=== PATIENT | male | born 1935 | race Caucasian/White ===

== ENCOUNTER 2017-12-26 12:49 | Outpatient (CLI) | payer MEDICARE ==
--- NOTE | 2017-12-27 11:21 | PET ---
PET CT: HISTORY: 82-year-old male with bladder adenocarcinoma. TECHNIQUE: PET scanning with CT attenuation correction was performed from the base of the brain through the prox imal thighs following the intravenous administration of 11.3 mCi [id number] in the right antecubital fos sa. Imaging performed after an uptake interval of 48 minutes. COMPARISON: None. FINDINGS: There is a 2.0 cm hypermetabolic nodule in the left upper lobe with a SUV of 10 and a 14.0 mm hyperme tabolic nodule in the right upper lobe with a SUV of 4. Hypermetabolic left hilar lymph node is seen with a SUV of 10.4. There are omental and peritoneal mets in the abdomen and pelvis with a maximum SUV of 10. No chico hypermetabolism is seen in the neck, mediastinum, axilla, abdomen, or pelvis. No hypermetabo lic liver, adrenal, or skeletal lesions are seen. Patchy uptake in the liver is artifactual. There is physiologic activity in the GI and tracts, and the visualized portions of the brain. No pleural e ffusions are seen on the CT scan used for attenuation correction. There is mild ascites. IMPRESSION: Findings are consistent with metastatic disease in the lungs, left hilum, and peritoneum/omentum. POS: [facility]
== END 2017-12-26 12:50 | disposition home or self-care (01) ==
LOC: PET 12:49
PROVIDERS: ATTEND Internal Medicine Hematology & Oncology
DX: C67.9 Malignant neoplasm of bladder, unspecified (principal)
CPT/HCPCS: 78815; A9552

== ENCOUNTER 2018-01-10 11:51 | Day surgery (SDC) | payer MEDICARE ==
[2018-01-09 12:15] VITALS: BMI 19.8
[2018-01-10] MEDS ORDERED: Lidocaine 2% 10 ML INJ ONE (12:10)
[2018-01-10] MEDS ORDERED: Bupivacaine/Epinephrine 0.25% 30 ML VIAL ONE (12:10)
[2018-01-10] MEDS ORDERED: CEFAZOLIN/Water 2 GM/20 ML SYRINGE ONE (12:11)
[2018-01-10] MEDS ORDERED: Propofol 1,000 MG/100 ML VIAL IV ONE (12:26)
[2018-01-10] MEDS ORDERED: Fentanyl 100 MCG/2 ML VIAL ONE (12:26)
--- NOTE | 2018-01-10 13:27 | OP ---
DATE OF PROCEDURE: 01/10/2018 PREOPERATIVE DIAGNOSIS: Bladder cancer. POSTOPERATIVE DIAGNOSES: Bladder cancer. PROCEDURE: Tunneled central line subcutaneous port (MediPort, CT injectable). SURGEON: Edgar Rosa M.D. ANESTHESIA: TIVA, local. ESTIMATED BLOOD LOSS: Minimal. COMPLICATIONS: None. SPECIMEN: None. FINDINGS: The tip of the catheter is at atriocval junction. TECHNIQUE: The patient was taken to the operating room and placed supine on the table. After sedati on was obtained, bilateral neck and chest is shaved, prepped, and draped in a sterile fashion. Local anesthetic infiltrated over the right internal jugular vein. Internal jugular vein cannulated using a 22-gauge finder needle followed by a Seldinger needle. Wire was passed into the superior vena cav a under fluoroscopic guidance. A small yang was made at the wire entrance site. A separate 3-cm inc ision was made in the right upper chest. Subcutaneous pocket made below the lower incision. Tubing for the MediPort tunneled from the inferior to superior incision. Introducer sheath was placed over the wire into the superior vena cava. The tip of the catheter is at atriocaval junction. MediPort t ubing cut to admit the MediPort at the lower incision. MediPort sewn to the chest wall in the subcut aneous pocket using Prolene. MediPort flushes and draws blood without difficulties flushed with a he stacy flush. The wound was irrigated and closed using 3-0 Vicryl, 4-0 Monocryl, and Dermabond. The patient went to recovery in stable condition. All instrument counts, needle counts, and lap counts w ere correct.
--- NOTE | 2018-01-10 14:30 | RAD ---
ONE VIEW CHEST: HISTORY: Status post MediPort insertion. COMPARISON: None. FINDINGS: Normal cardiac silhouette. The pulmonary vessels and hilum are normal. Costophrenic angles are gaurav r. No consolidation or mass. Right-sided MediPort catheter terminates in the median superior vena c logan. No definite pneumothorax. IMPRESSION: Right-sided MediPort catheter. No pneumothorax. POS: [facility]
[2018-01-10] MEDS ORDERED: Ondansetron HCl/PF 4 MG/2 ML Vial ONE (15:09)
[2018-01-10] MEDS ORDERED: PROPOFOL 200 MG/20 ML VIAL ONE (15:09)
[2018-01-10] MEDS ORDERED: Dexamethasone 20 MG/5 ML VIAL ONE (15:09)
== END 2018-01-10 14:03 | disposition home or self-care (01) ==
LOC: SDC 11:51
PROVIDERS: ATTEND Surgery
PROC: 0JH63WZ Insertion of Totally Implantable Vascular Access Device into Chest Subcutaneous Tissue and Fascia, Percutaneous Approach (ICD-10-PCS; principal; 2018-01-10)
DX: C67.9 Malignant neoplasm of bladder, unspecified (principal); Z79.899 Other long term (current) drug therapy
CPT/HCPCS: 36561; 71045; C1788; J1100; J1642; J2405; J2704; J3010

== ENCOUNTER 2018-03-02 13:25 | Inpatient (IN) | payer MEDICARE ==
[2018-03-02 15:05] LABS: #Lymphocytes 1.7 thou/uL (1.20-3.40); #Monocytes 0.7 thou/uL (0.11-0.59); #Neutrophils 6.5 thou/uL (1.40-6.50); %Basophils 0.3 % (0.0-1.0); %Eosinophils 0.5 % (0.0-10.0); %Lymphocytes 19.1 % (21.0-51.0); %Monocytes 7.8 % (0.0-10.0); %Neutrophils 72.4 % (42.0-75.0); Hemoglobin 11.3 g/dL (14.0-18.0); Mean Corpuscular HGB CONC 33.4 g/dL (32.0-36.0); Mean Corpuscular Hemoglobin 29.6 pg (27.0-31.0); Mean Corpuscular Volume 88.7 fL (78.0-98.0); Mean Platelet Volume 7.4 fL (7.4-10.4); Platelet Count 284 thou/uL (130-400); RBC Distribution Width 14.8 % (11.5-14.5); White Blood Cell (WBC) Count 8.9 thou/uL (4.8-10.8)
--- NOTE | 2018-03-02 15:09 | RAD ---
FRONTAL VIEW CHEST: Date: 03/02/18 COMPARISON: 01/10/18. INDICATION: Weakness and diarrhea. FINDINGS: There is no evidence of consolidation, effusion, or discrete pneumothorax. Right side chest port earl ins. Cardiac silhouette is stable. There is vascular calcification and osseous degenerative change. IMPRESSION: No focal consolidation. POS: [facility]
[2018-03-02 15:22] LABS: ALT (SGPT) 15 U/L (8-55); AST (SGOT) 12 U/L (5-34); Albumin 3.8 g/dL (3.4-4.8); Alkaline Phosphatase 64 U/L (40-150); Anion Gap 17 mmol/L (10-20); BUN (Urea Nitrogen) 32 mg/dL (8.4-25.7); Bilirubin, Total 0.8 mg/dL (0.2-1.2); Calc. Creatinine Clearance 0 mL/min (70-130); Calcium 8.4 mg/dL (7.8-10.44); Carbon Dioxide 16 mmol/L (23-31); Chloride 104 mmol/L (98-107); Estimated GFR-MDRD 20; Globulin 2.7 g/dL (2.4-3.5); Glucose 124 mg/dL (83-110); Protein, Total 6.5 g/dL (5.8-8.1); Sodium 134 mmol/L (136-145)
[2018-03-02 15:28] LABS: Potassium 2.9 mmol/L (3.5-5.1)
[2018-03-02] MEDS ORDERED: NS 0.9% w/ 40 MEQ KCL 1,000 ML IV SCH (16:00)
[2018-03-02] MEDS ORDERED: cloNIDine 0.1 MG TAB PO PRN (18:11)
[2018-03-02] MEDS ORDERED: Acetaminophen 325 MG TAB PO PRN (18:11)
[2018-03-02] MEDS ORDERED: Senokot S 8.6-50 MG TAB PO PRN (18:11)
[2018-03-02] MEDS ORDERED: Bisacodyl 5 MG TAB PO PRN (18:11)
[2018-03-02] MEDS ORDERED: Diabetic Tussin 200 MG/10 ML UDCUP PO PRN (18:11)
[2018-03-02] MEDS ORDERED: Benzonatate 100 MG CAP PO PRN (18:11)
[2018-03-02] MEDS ORDERED: Nitroglycerin 0.4 MG TAB (25 Tab Bottle) SL PRN (18:11)
[2018-03-02] MEDS ORDERED: Loratadine 10 MG TAB PO PRN (18:11)
[2018-03-02] MEDS ORDERED: traMADol HCl 50 MG TAB PO PRN (18:11)
[2018-03-02] MEDS ORDERED: hydrALAZINE 20 MG/ML VIAL SLOW IVP PRN (18:11)
--- NOTE | 2018-03-02 18:38 | CT ---
NONCONTRAST ABDOMEN AND PELVIS CT: Clinical history: Weakness and pain. FINDINGS: Abnormal parahepatic and paraspinal free fluid is present which descends into the lower abdomen. Ther e is ectasia of the calcified aorta. No hydronephrosis or urolithiasis. There is complex reticular no dularity of the intraabdominal fat. This could be on the basis of complex ascites or tumor deposition , not further characterized on the basis of this noncontrast exam. Patchy densities are seen at the l zack bases as well as nodularity, incompletely assessed. Pancreas is atrophic. No adrenal mass is seen bilaterally. Moderate distention of the gallbladder with subtle increased layering density. There is osseous degenerative change. IMPRESSION: 1. Abdominal ascites. 2. Moderate distention of the gallbladder with layering increased density that may relate to sludge a nd/or gravel like cholelithiasis. This may be further assessed with gallbladder ultrasound as indicat ed. 3. Pulmonary parenchymal nodularity. Dedicated CT thorax as follow up as warranted as neoplastic etio logy is not excluded. 4. Complex reticulonodularity of the intraabdominal fat which could be on the basis of complex ascite s versus omental tumor deposition. Continued follow up is warranted. POS: [facility]
--- NOTE | 2018-03-02 19:23 | ULT ---
GALLBLADDER ULTRASOUND: History: Distended gallbladder noted on ultrasound. FINDINGS: Real-time imaging of the right upper quadrant shows minimally distended gallbladder. Some small echog enic areas along the gallbladder wall could indicate adenomyomatosis. It could be tiny polyps. No sto yi identified. Some trace free fluid seen adjacent to the gallbladder. The technologist reports a ne gative ultrasound Lee's sign. The common duct is 5 mm. Visualized liver parenchyma shows no focal findings and measures 16 cm in length. Right kidney was partially obscured and appears nonobstructed. It appears to be of mild increased ech ogenicity. The pancreas is totally obscured. IMPRESSION: Minimally distended gallbladder without gallbladder wall thickening or gallstones. There may be some small polyps or possibly adenomyomatosis noted. Some small echogenic areas along the gallbladder wall . The technologist reports a negative Lee's sign. There is some trace fluid adjacent to the gallbl adder incidentally noted and some trace fluid along the liver margin. POS: [facility]
[2018-03-02] MEDS: Sodium Chloride 0.9% 1,000 ML IV SCH (20:00)
--- NOTE | 2018-03-02 20:24 | HP ---
DATE OF ADMISSION: 03/02/2018 PRIMARY CARE PHYSICIAN: José Miguel Bishop M.D. CHIEF COMPLAINT: Generalized weakness and diarrhea. HISTORY OF PRESENT ILLNESS: Mr. Das is a pleasant 82-year-old male with past medical history of b ladder cancer diagnosed earlier this year in summer, currently on chemotherapy as well as history of pulmonary embolism in 11/2017 who presented to the emergency room with above-mentioned complaint. Hi story is mainly obtained by the patient himself and electronic medical records have been reviewed. C ase has been discussed with admitting ER physician. According to Mr. Das and his present at bedside, he is undergoing chemotherapy. He gets first round at the infusion center on Saturday and then they take at home and finish it by a pump on Saturday. He has undergone 3 cycles of chemo and his last cycle was day before yesterday on Saturday. He has noticed mild diarrhea after the second round of chemo, but he has been having some diarrhea even before starting of third round. Sometime in the last 2-3 days, his diarrhea has worsened and he has been going multiple times a day and the stools ar e loose, watery. It is not associated with any nausea, vomiting, or abdominal cramps. His appetite has been down and he has been getting dehydrated and the noticed that he is getting weaker and w eaker. Prior to all of the illness, he was very active and would mow his lawn. He denies any recent illnesses otherwise. Upon presentation to the emergency room, he was otherwise hemodynamically stable with blood pressures on the lower side of 92/66, heart rate 85. His initial workup includes serum chemistries which show ed potassium of 2.9, sodium 134, BUN 32, creatinine 3.04. His baseline creatinine seems to be around 2.9. Lipase and magnesium were normal. He underwent a CT scan of the abdomen and pelvis given his history of bladder cancer and acute renal insufficiency which showed abdominal ascites and moderate d istention of the gallbladder as well as pulmonary parenchymal opacities. Because of the gallbladder distention and gallbladder ultrasound was done, which was mild distention without evidence of cholecy stitis. His chest x-ray was unremarkable. A 12-lead EKG had no acute changes. He is now being admi tted for generalized weakness, severe dehydration, hypokalemia and acute renal insufficiency or likel y due to diarrhea. Mr. Das social supports that he had a PE in November of this year, is currently on Eliquis. He also w as recently told that the cancer have gone to his colon. PAST MEDICAL HISTORY: 1. Pulmonary embolism in 11/2017, currently on Eliquis. 2. History of bladder cancer with colonic metastasis. 3. Hypertension. PAST SURGICAL HISTORY: 1. Cardiac stenting x1 bowel perforation repair. 2. Left cataract surgery. 3. Hernia repair. PSYCHIATRIC HISTORY: None. SOCIAL HISTORY: and lives with his . He has a smoking history, multiple years ago. No history of current drug or alcohol abuse or tobacco abuse. FAMILY HISTORY: The patient denies any significant family history of coronary artery disease or stro ke in his family. He has 1 sister who has had breast cancer. ALLERGIES: No known medication allergies. CURRENT MEDICATIONS: As listed in the ER records which further needs to be confirmed, Eliquis 5 mg b .i.d., Megace 10-15 mL daily, Compazine 10 mg q.4 hour p.r.n., amlodipine 5 mg daily, Zofran p.r.n. CODE STATUS: FULL CODE. Discussed with the patient. REVIEW OF SYSTEMS: A 12 point review of systems was done. It is negative except for those mentioned in the history and physical. LABORATORY DATA: CBC is rather unimpressive. Hemoglobin 11.3, otherwise unremarkable. Serum chemis try: Potassium 2.9, BUN 32, creatinine 3.04 with estimated GFR 20, blood sugar 124. Lactic acid is 1. Magnesium is 2. Lipase is 34. Chest x-ray by my review has no evidence to suggest any acute car diopulmonary abnormality. No effusion or consolidation. CT scan of the abdomen and pelvis as per e HPI. Abdominal ultrasound is negative for any evidence of cholecystitis or gallstones. Twelve ute d EKG by my review has no evidence of ST or T-wave changes. PHYSICAL EXAMINATION: VITAL SIGNS: Upon presentation, blood pressure 92/66, pulse of 85, respirations 20, saturating 95% o n room air, temperature 98.2. GENERAL: He appears chronically ill, otherwise in no acute distress. He does appear somewhat pale. HEENT: Mucous membrane is dry. No oropharyngeal exudate or erythema. Head is normocephalic, atraum atic. Pupils equal, reactive to light and accommodation. Extraocular movement intact. NECK: Supple without any lymphadenopathy, JVD or bruit. CHEST: Clear to auscultation without any wheezing, rales or rhonchi. CARDIOVASCULAR: Rate and rhythm is regular without any murmur, rubs or gallops. ABDOMEN: Soft, nontender, nondistended with positive bowel sounds. EXTREMITIES: Free of any cyanosis, clubbing, or edema. NEUROLOGIC: Nonfocal. SKIN: Free of any rashes or bruises. Feels warm and dry to touch. PSYCHIATRIC: Normal affect. IMPRESSION AND PLAN: 1. Acute renal insufficiency. This is secondary to dehydration, ongoing some diarrhea. He will be resuscitated with IV fluids and we will avoid any nephrotoxic agents. Recheck in the morning. 2. Hypokalemia due to poor oral intake. He has been given 40 mEq of potassium chloride in the ER. We will check potassium again and replace as needed. 3. Acute on chronic diarrhea. The patient's diet is most likely secondary to chemo, but superinfect ion cannot be ruled out. We will send stool for Clostridium difficile and other studies including cu lture, WBCs. 4. Generalized weakness. This is secondary to ongoing cancer chemotherapy as well as dehydration as above. We will have OT, PT see the patient. We will add Ensure to help regain some of his strength . 5. History of hypertension, currently on the lower side. We will hold his amlodipine for now. 6. Bladder cancer. Continue to follow up with Dr. Gallagher in the outpatient setting. Despite the c hemotherapy, his white blood cell count, hemoglobin and platelet count is adequate. We will recheck in the morning. 7. History of pulmonary embolism. We will restart his Eliquis for now at home dosages. 8. Code status: FULL CODE. Discussed with the patient in detail. 9. Deep venous thrombosis and gastrointestinal prophylaxis and p.r.n. medication orders. DISPOSITION: Mr. Das is currently being admitted to the hospital for renal failure secondary to d ehydration and hypokalemia, with diarrheal illness. Further management will depend upon his clinical course. Estimated length of stay at this time is at least 2-3 midnights.
[2018-03-02 20:28] LABS: Potassium 3.1 mmol/L (3.5-5.1)
[2018-03-02] MEDS: Apixaban 2.5 MG TAB PO SCH (23:00)
[2018-03-03 05:29] LABS: #Lymphocytes 1.7 thou/uL (1.20-3.40); #Monocytes 0.5 thou/uL (0.11-0.59); #Neutrophils 3.7 thou/uL (1.40-6.50); %Eosinophils 0.3 % (0.0-10.0); %Lymphocytes 29.2 % (21.0-51.0); %Monocytes 8.2 % (0.0-10.0); %Neutrophils 62.3 % (42.0-75.0); Hemoglobin 10.1 g/dL (14.0-18.0); Mean Corpuscular HGB CONC 32.8 g/dL (32.0-36.0); Mean Corpuscular Hemoglobin 29.1 pg (27.0-31.0); Mean Corpuscular Volume 88.8 fL (78.0-98.0); Mean Platelet Volume 7.4 fL (7.4-10.4); Platelet Count 248 thou/uL (130-400); Red Blood Cell (RBC) Count 3.47 mill/uL (4.70-6.10)
[2018-03-03 05:44] LABS: Anion Gap 13 mmol/L (10-20); BUN (Urea Nitrogen) 31 mg/dL (8.4-25.7); Calc. Creatinine Clearance 24 mL/min (70-130); Calcium 7.9 mg/dL (7.8-10.44); Carbon Dioxide 19 mmol/L (23-31); Chloride 109 mmol/L (98-107); Estimated GFR-MDRD 22; Glucose 119 mg/dL (83-110); Sodium 138 mmol/L (136-145)
[2018-03-03 07:12] LABS: Bilirubin Negative (Negative); Blood, Urine Trace (Negative); Clarity CLEAR (Clear); Glucose, Urine (Dipstick) 100 mg/dL (Negative); Leukocyte Negative (Negative); Nitrite Negative (Negative); Protein, Urine (Dipstick) 30 mg/dL (Neg-Trace); Specific Gravity, Urine 1.013 (1.002-1.036); Urobilinogen 0.2 mg/dL (0.2-1.0)
[2018-03-03 07:15] LABS: Bacteria/HPF None Seen HPF (None Seen); Hyaline Casts/LPF 0-3 HYALINE CAST LPF (0-3 Hyaline); Pathc Cast-AUWi Flag 0.29 (0-2.49); Squamous Epithelial 0-3 HPF (0-3)
[2018-03-03] MEDS: Sodium Chloride 0.9% 1,000 ML IV SCH (08:27)
[2018-03-03] MEDS: Famotidine 20 MG TAB PO SCH (08:27)
[2018-03-03] MEDS: Apixaban 2.5 MG TAB PO SCH ×2 (08:27→21:32)
[2018-03-03] MEDS ORDERED: Enoxaparin Sodium 30 MG/0.3 ML SYRINGE SC SCH (09:00)
[2018-03-03] MEDS ORDERED: Prevnar 13-Val Conj/PF 0.5 ML SYRINGE IM ONE (09:00)
[2018-03-03] MEDS ORDERED: Ondansetron ODT 8 MG TAB SL PRN (09:09)
[2018-03-03] MEDS ORDERED: Prochlorperazine Maleate 5 MG TAB PO PRN (10:05)
[2018-03-03] MEDS ORDERED: Potassium Chloride 40 MEQ in Sodium Chloride 0.9% 250 ML 250 ML IVPB SCH (10:30)
[2018-03-03] MEDS ORDERED: Potassium Chloride 20 MEQ TAB PO SCH (10:30)
[2018-03-03] MEDS: Diphenoxylate HCl/Atropine Tablet PO PRN ×2 (11:00→17:47)
[2018-03-03] MEDS: NS 0.9% w/ 20 MEQ KCL 1,000 ML/1,000 ML BAG IV SCH ×2 (11:22→22:30)
--- NOTE | 2018-03-03 12:13 | PDOC.PN ---
- Subjective Encounter Start Date: 03/03/18 Encounter Start Time: 12:11 Subjective: feels much better but still weak. -: care discussed w at bedside -: still with lots of diarrhea - Objective Resuscitation Status: Resuscitation Status FULL:Full Resuscitation MAR Reviewed: Yes Vital Signs & Weight: Vital Signs (12 hours) Temp Pulse Pulse Pulse Pulse Resp BP 03/03/18 11:22 98.3 F 98 16 03/03/18 09:47 104 H 97 88 142/79 H 03/03/18 08:25 98.3 F 69 16 03/03/18 04:00 98 F 73 16 BP BP BP Pulse Ox 03/03/18 11:22 133/77 98 03/03/18 09:47 116/64 141/80 H 03/03/18 08:25 147/72 H 97 03/03/18 04:00 149/73 H 96 Weight Admit Weight 186 lb 14.4 oz Weight 186 lb 8 oz I&O: 03/02/18 03/03/18 03/04/18 06:59 06:59 06:59 Intake Total 1000 Output Total 175 1150 Balance 825 -1150 Result Diagrams: 03/03/18 04:26 03/03/18 04:26 Additional Labs: Microbiology 03/02/18 21:47 Stool Stool Lactoferrin - Final 03/02/18 21:47 Stool Shiga Toxin Test - Final 03/02/18 21:47 Stool C. difficile GDH Antigen & Toxins - Final Phys Exam - Physical Examination Constitutional: NAD HEENT: PERRLA, moist MMs, sclera anicteric, oral pharynx no lesions Neck: no nodes, no JVD, supple, full ROM Respiratory: no wheezing, no rales, no rhonchi, clear to auscultation bilateral Cardiovascular: RRR, no significant murmur Gastrointestinal: soft, non-tender, no distention, positive bowel sounds Musculoskeletal: no edema, pulses present Neurological: non-focal, normal sensation, moves all 4 limbs Psychiatric: normal affect, A&O x 3 Skin: no rash Dx/Plan (1) LORE (acute kidney injury) Code(s): N17.9 - ACUTE KIDNEY FAILURE, UNSPECIFIED Status: Acute (2) Hypokalemia Code(s): E87.6 - HYPOKALEMIA Status: Acute (3) Diarrhea Code(s): R19.7 - DIARRHEA, UNSPECIFIED Status: Acute (4) Dehydration Code(s): E86.0 - DEHYDRATION Status: Acute (5) Bladder cancer Status: Chronic (6) HTN (hypertension) Code(s): I10 - ESSENTIAL (PRIMARY) HYPERTENSION Status: Chronic - Plan PT/OT, out of bed/ambulate, DVT proph w/SCDs Cont IVF.change to IVF w KCL.recheck labs -: add Imodium as Cdiff negative -: Following urine & Blood Cx.Negative so far -: OT.PT. Pt prefers HH on DC -: am labs * . Review of Systems - Review of Systems Constitutional: weakness, malaise Eyes: negative: Pain, Vision Change, Conjunctivae Inflammation, Eyelid Inflammation, Redness, Other ENT: negative: Ear Pain, Ear Discharge, Nose Pain, Nose Discharge, Nose Congestion, Mouth Pain, Mouth Swelling, Throat Pain, Throat Swelling, Other Respiratory: negative: Cough, Dry, Shortness of Breath, Hemoptysis, SOB with Excertion, Pleuritic Pain, Sputum, Wheezing Cardiovascular: negative: chest pain, palpitations, orthopnea, paroxysmal nocturnal dyspnea, edema, light headedness, other Gastrointestinal: Diarrhea. negative: Nausea, Vomiting, Abdominal Pain, Constipation, Melena, Hematochezia, Other Genitourinary: negative: Dysuria, Frequency, Incontinence, Hematuria, Retention , Other Musculoskeletal: negative: Neck Pain, Shoulder Pain, Arm Pain, Back Pain, Hand Pain, Leg Pain, Foot Pain, Other Skin: negative: Rash, Lesions, Jesse, Bruising, Other Neurological: negative: Weakness, Numbness, Incoordination, Change in Speech, Confusion, Seizures, Other - Medications/Allergies Allergies/Adverse Reactions: Allergies Allergy/AdvReac Type Severity Reaction Status Date / Time No Known Allergies Allergy Verified 03/02/18 21:05 Medications: Current Medications Acetaminophen (Tylenol) 650 mg PO Q4H PRN PRN Reason: Headache/Fever/Mild Pain (1-3) Amlodipine Besylate (Norvasc) 5 mg PO DAILY [facility] Apixaban (Eliquis) 2.5 mg PO BID [facility] Last Admin: 03/03/18 08:27 Dose: 2.5 mg Benzonatate (Tessalon) 100 mg PO Q4H PRN PRN Reason: Cough Bisacodyl (Dulcolax) 10 mg PO DAILYPRN PRN PRN Reason: Constipation Clonidine (Catapres) 0.1 mg PO Q4H PRN PRN Reason: Systolic BP > 160 Diphenoxylate HCl/Atropine (Lomotil) 1 tab PO Q6H PRN PRN Reason: Diarrhea/Loose Stools Last Admin: 03/03/18 11:00 Dose: 1 tab Famotidine (Pepcid) 20 mg PO DAILY [facility] Last Admin: 03/03/18 08:27 Dose: 20 mg Guaifenesin (Robitussin Sf) 200 mg PO Q4H PRN PRN Reason: Cough Hydralazine HCl (Apresoline) 10 mg SLOW IVP Q4H PRN PRN Reason: Systolic BP > 170 Potassium Chloride/Sodium Chloride (Ns 0.9% W/ 20 Meq Kcl) 1,000 ml in 1,000 mls @ 100 mls/hr IV .Q10H [facility] Last Admin: 03/03/18 11:22 Dose: 1,000 mls Loratadine (Claritin) 10 mg PO DAILYPRN PRN PRN Reason: Sinus Symptoms Nitroglycerin (Nitrostat) 0.4 mg SL Q5MIN PRN PRN Reason: Chest Pain Ondansetron HCl (Zofran) 4 mg IVP Q6H PRN PRN Reason: Nausea/Vomiting Ondansetron HCl (Zofran Odt) 8 mg SL Q6H PRN PRN Reason: NAUSEA,VOMITING Potassium Chloride (K-Dur) 40 meq PO NOW [facility] Stop: 03/03/18 12:30 Last Admin: 03/03/18 11:00 Dose: 40 meq Prochlorperazine Maleate (Compazine) 10 mg PO Q4H PRN PRN Reason: Nausea/Vomiting Senna/Docusate Sodium (Senokot S) 2 tab PO BID PRN PRN Reason: Constipation Tramadol HCl (Ultram) 50 mg PO Q4H PRN PRN Reason: Moderate Pain (4-6)
[2018-03-03 15:52] LABS: Troponin I 0.065 ng/mL (< 0.028)
[2018-03-03] MEDS ORDERED: Carvedilol 6.25 MG TAB PO SCH (17:45)
[2018-03-03] MEDS: Ondansetron PF 4 MG/2 ML Vial IVP PRN (17:47)
[2018-03-03 18:28] LABS: Troponin I 0.062 ng/mL (< 0.028)
--- NOTE | 2018-03-03 20:55 | PDOC.EVN ---
Event Note - Event Note Event Note: RN called tp report 50 beats of Non sustained SVT with pt stable and asymtpomatic. ECHo and serial cardiac enzymes ordered. pt again had a run of MAT on monitor & once again stable hemodynamically and asymptomatic. With recent chemoRx and underlying Metastatic Cancer,r/o cardiomyopathy.Will get cardiology recs and give 1 dose Mag and start Coreg BID. stop amlodipine. Lytes improving this am. will recheck. Clinically no S/S to suggest PE.Pt already on Eliquis given H/O same earlier this year.Cont to monitor.
[2018-03-03 21:34] LABS: Troponin I 0.066 ng/mL (< 0.028)
[2018-03-04] MEDS: Ondansetron PF 4 MG/2 ML Vial IVP PRN (02:01)
[2018-03-04 05:49] LABS: Anion Gap 16 mmol/L (10-20); BUN (Urea Nitrogen) 33 mg/dL (8.4-25.7); Calc. Creatinine Clearance 25 mL/min (70-130); Carbon Dioxide 13 mmol/L (23-31); Chloride 113 mmol/L (98-107); Estimated GFR-MDRD 23; Glucose 145 mg/dL (83-110); Potassium 3.4 mmol/L (3.5-5.1); Sodium 139 mmol/L (136-145)
[2018-03-04] MEDS ORDERED: Carvedilol 6.25 MG TAB PO SCH (08:00)
[2018-03-04] MEDS: NS 0.9% w/ 20 MEQ KCL 1,000 ML/1,000 ML BAG IV SCH ×2 (08:43→09:44)
[2018-03-04] MEDS: Apixaban 2.5 MG TAB PO SCH ×2 (08:46→22:00)
[2018-03-04] MEDS: Famotidine 20 MG TAB PO SCH (08:46)
[2018-03-04] MEDS ORDERED: Amlodipine 5 MG TAB PO SCH (09:00)
[2018-03-04] MEDS ORDERED: Potassium Chloride 20 MEQ TAB PO SCH (09:30)
[2018-03-04] MEDS: Metoprolol Tartrate 5 MG/5 ML VIAL IVP SCH ×3 (09:42→22:01)
[2018-03-04] MEDS: Promethazine HCl 25 MG/ML VIAL IM/IV PRN ×2 (11:00→16:38)
[2018-03-04] MEDS ORDERED: Potassium Chloride 40 MEQ in Premix Bag 1 BAG IVPB SCH (11:00)
[2018-03-04] MEDS: Potassium Chloride 20 MEQ in Premix Bag 1 BAG IVPB SCH ×2 (11:00→13:22)
--- NOTE | 2018-03-04 12:06 | CON ---
DATE OF CONSULTATION: 03/04/2018 HISTORY OF PRESENT ILLNESS: The patient is a pleasant 82-year-old gentleman with a history of coronary artery disease and a pulmonary embolus, who presented with nausea, vomiting and diarrhea who was noted to have a very rapid heart rate. The patient states in 2000, he underwent PTCA and stent placement. The patient has been followed by Dr. Brendon Helms. He has done remarkably well. He denied having any chest pain, palpitations or dyspnea. The patient was recently diagnosed with bladder carcinoma. He has been undergoing chemotherapy. The patient presented with nausea and vomiting. On telemetry monitoring, the patient was noted to have a rapid irregular heart rate. The patient denied having any palpitations. PAST MEDICAL HISTORY: 1. Coronary artery disease. 2. Bladder carcinoma. 3. Hypertension. 4. History of pulmonary embolus. 5. Hypertension. PAST SURGICAL HISTORY: Cataract surgery and hernia surgery. SOCIAL HISTORY: Nonsmoker. FAMILY HISTORY: There is no strong family history of coronary artery disease. ALLERGIES: No known drug allergies. MEDICATIONS: Eliquis 2.5 b.i.d., and Norvasc 5 daily. PHYSICAL EXAMINATION: GENERAL: This is an ill-appearing elderly gentleman, in mild distress. VITAL SIGNS: Blood pressure 139/66. NECK: Showed no jugular venous distention. LUNGS: Coarse breath sounds bilateral. HEART: Regular rate and rhythm. Normal S1, S2. ABDOMEN: Distended. EXTREMITIES: Showed trace edema. SKIN: Warm and dry. NEUROLOGIC: Nonfocal. VASCULAR: Radial pulses 2+. LABORATORY DATA: Sodium 139, potassium 3.4, chloride 113, BUN 33, creatinine is 2.71, glucose 145. Troponin 0.066. White blood cell count 6.0, hemoglobin 10.1, hematocrit 30.8 and platelets are 248,000. His digital account manager revealed rapid SVT. IMPRESSION: 1. Supraventricular tachycardia. 2. History of coronary artery disease. 3. History of pulmonary embolus. 4. Bladder carcinoma. 5. Renal insufficiency. 6. Hypertension. This gentleman developed rapid SVT. He is unable to keep down his medications. Would switch to IV Lopressor. We will follow this patient with you through his hospitalization. RAMÓN
--- NOTE | 2018-03-04 14:28 | PDOC.PN ---
- Subjective Encounter Start Date: 03/04/18 Encounter Start Time: 14:27 Subjective: nausea and vomiting this morning .poor appetite -: diarrhea better - Objective Resuscitation Status: Resuscitation Status FULL:Full Resuscitation MAR Reviewed: Yes Vital Signs & Weight: Vital Signs (12 hours) Temp Pulse Resp BP Pulse Ox 03/04/18 11:05 99.6 F 79 14 118/58 L 97 03/04/18 08:00 98 03/04/18 07:05 99.0 F 83 16 139/66 98 03/04/18 04:00 98.1 F 86 16 121/62 95 Weight Admit Weight 186 lb 14.4 oz Weight 190 lb I&O: 03/03/18 03/04/18 03/05/18 06:59 06:59 06:59 Intake Total 1000 3270 Output Total 175 1660 Balance 825 1610 Result Diagrams: 03/03/18 04:26 03/04/18 04:43 Additional Labs: Microbiology 03/02/18 21:47 Stool Stool Lactoferrin - Final 03/02/18 21:47 Stool Shiga Toxin Test - Final 03/02/18 21:47 Stool Escherichia coli 0157 Culture - Final 03/02/18 21:47 Stool Escherichia coli 0157 Culture - Final 03/02/18 21:47 Stool C. difficile GDH Antigen & Toxins - Final 03/03/18 06:24 Urine clean catch Urine Culture - Preliminary NO GROWTH AT 24 HOURS 03/02/18 21:47 Stool Stool Culture - Preliminary 03/02/18 21:47 Stool Stool Culture - Preliminary 03/02/18 16:17 Port - Right Subclavian Vein Blood Culture - Preliminary NO GROWTH AT 48 HOURS 03/02/18 14:50 Venous blood - Left Arm Blood Culture - Preliminary NO GROWTH AT 48 HOURS Laboratory Tests 01/29/18 03/02/18 03/03/18 14:07 14:54 04:26 Creatinine 2.90 H 3.04 H 2.77 H Troponin I 03/03/18 03/03/18 03/03/18 15:22 17:53 21:03 Creatinine Troponin I 0.065 H 0.062 H 0.066 H 03/04/18 04:43 Creatinine 2.71 H Troponin I Phys Exam - Physical Examination Constitutional: NAD pale and frail,chronically ill looking HEENT: PERRLA, moist MMs, sclera anicteric, oral pharynx no lesions Neck: no nodes, no JVD, supple, full ROM Respiratory: no wheezing, no rales, no rhonchi, clear to auscultation bilateral Cardiovascular: RRR, no significant murmur Gastrointestinal: soft, non-tender, no distention, positive bowel sounds Musculoskeletal: no edema, pulses present Neurological: non-focal, normal sensation, moves all 4 limbs Psychiatric: normal affect, A&O x 3 Skin: no rash Dx/Plan (1) Arrhythmia Code(s): I49.9 - CARDIAC ARRHYTHMIA, UNSPECIFIED Status: Acute Qualifiers: Arrhythmia type: supraventricular tachycardia Qualified Code(s): I47.1 - Supraventricular tachycardia (2) LORE (acute kidney injury) Code(s): N17.9 - ACUTE KIDNEY FAILURE, UNSPECIFIED Status: Acute Comment: improving.Cont IVF and monitor.Avoid nephrotoxins (3) Hypokalemia Code(s): E87.6 - HYPOKALEMIA Status: Acute Comment: replace and recheck.Due to GI losses (4) Diarrhea Code(s): R19.7 - DIARRHEA, UNSPECIFIED Status: Acute Qualifiers: Diarrhea type: unspecified type Qualified Code(s): R19.7 - Diarrhea, unspecified (5) Dehydration Code(s): E86.0 - DEHYDRATION Status: Acute (6) Bladder cancer Status: Chronic Comment: Mets to Colon (7) HTN (hypertension) Code(s): I10 - ESSENTIAL (PRIMARY) HYPERTENSION Status: Chronic (8) History of pulmonary embolus (PE) Code(s): Z86.711 - PERSONAL HISTORY OF PULMONARY EMBOLISM Status: Chronic Comment: On eliquis - Plan plan discussed w/ family, PT/OT, out of bed/ambulate, DVT proph w/SCDs Add Phergan.Stool studies negative.cont Lomotil prn.Cont IVF -: Arrythmia yesterday.ECHO,cardiology consult.appreciate Input -: BB changed to PO. -: cont supportive care.cont Eliquis -: follow Blood an durine Cx results * . Review of Systems - Review of Systems Constitutional: weakness, malaise. negative: fever, chills, sweats, other ENT: negative: Ear Pain, Ear Discharge, Nose Pain, Nose Discharge, Nose Congestion, Mouth Pain, Mouth Swelling, Throat Pain, Throat Swelling, Other Respiratory: negative: Cough, Dry, Shortness of Breath, Hemoptysis, SOB with Excertion, Pleuritic Pain, Sputum, Wheezing Cardiovascular: negative: chest pain, palpitations, orthopnea, paroxysmal nocturnal dyspnea, edema, light headedness, other Gastrointestinal: Nausea, Vomiting, Diarrhea Genitourinary: negative: Dysuria, Frequency, Incontinence, Hematuria, Retention , Other Musculoskeletal: negative: Neck Pain, Shoulder Pain, Arm Pain, Back Pain, Hand Pain, Leg Pain, Foot Pain, Other Neurological: negative: Weakness, Numbness, Incoordination, Change in Speech, Confusion, Seizures, Other - Medications/Allergies Allergies/Adverse Reactions: Allergies Allergy/AdvReac Type Severity Reaction Status Date / Time No Known Allergies Allergy Verified 03/02/18 21:05 Medications: Current Medications Acetaminophen (Tylenol) 650 mg PO Q4H PRN PRN Reason: Headache/Fever/Mild Pain (1-3) Apixaban (Eliquis) 2.5 mg PO BID [facility] Last Admin: 03/04/18 08:46 Dose: 2.5 mg Benzonatate (Tessalon) 100 mg PO Q4H PRN PRN Reason: Cough Bisacodyl (Dulcolax) 10 mg PO DAILYPRN PRN PRN Reason: Constipation Clonidine (Catapres) 0.1 mg PO Q4H PRN PRN Reason: Systolic BP > 160 Diphenoxylate HCl/Atropine (Lomotil) 1 tab PO Q6H PRN PRN Reason: Diarrhea/Loose Stools Last Admin: 03/03/18 17:47 Dose: 1 tab Famotidine (Pepcid) 20 mg PO DAILY [facility] Last Admin: 03/04/18 08:46 Dose: 20 mg Guaifenesin (Robitussin Sf) 200 mg PO Q4H PRN PRN Reason: Cough Hydralazine HCl (Apresoline) 10 mg SLOW IVP Q4H PRN PRN Reason: Systolic BP > 170 Potassium Chloride/Sodium Chloride (Ns 0.9% W/ 20 Meq Kcl) 1,000 ml in 1,000 mls @ 75 mls/hr IV .[id number] [facility] Last Admin: 03/04/18 09:44 Dose: 1,000 mls Potassium Chloride 20 meq/ (Device) 100 mls @ 50 mls/hr IVPB Q2H [facility] Stop: 03/04/18 14:59 Last Admin: 03/04/18 13:22 Dose: 100 mls Loratadine (Claritin) 10 mg PO DAILYPRN PRN PRN Reason: Sinus Symptoms Metoprolol Tartrate (Lopressor) 5 mg IVP Q6H [facility] Last Admin: 03/04/18 09:42 Dose: 5 mg Nitroglycerin (Nitrostat) 0.4 mg SL Q5MIN PRN PRN Reason: Chest Pain Ondansetron HCl (Zofran) 4 mg IVP Q6H PRN PRN Reason: Nausea/Vomiting Last Admin: 03/04/18 02:01 Dose: 4 mg Ondansetron HCl (Zofran Odt) 8 mg SL Q6H PRN PRN Reason: NAUSEA,VOMITING Last Admin: 03/03/18 21:32 Dose: 8 mg Prochlorperazine Maleate (Compazine) 10 mg PO Q4H PRN PRN Reason: Nausea/Vomiting Promethazine HCl (Phenergan) 12.5 mg IM/IV Q6H PRN PRN Reason: Nausea/Vomiting Last Admin: 03/04/18 11:00 Dose: 12.5 mg Senna/Docusate Sodium (Senokot S) 2 tab PO BID PRN PRN Reason: Constipation Sodium Chloride (Flush - Normal Saline) 10 ml IVF Q12HR [facility] Sodium Chloride (Flush - Normal Saline) 10 ml IVF PRN PRN PRN Reason: Saline Flush Last Admin: 03/04/18 09:43 Dose: 10 ml Tramadol HCl (Ultram) 50 mg PO Q4H PRN PRN Reason: Moderate Pain (4-6)
[2018-03-05] MEDS: NS 0.9% w/ 20 MEQ KCL 1,000 ML/1,000 ML BAG IV SCH ×2 (02:18→15:45)
[2018-03-05] MEDS: Metoprolol Tartrate 5 MG/5 ML VIAL IVP SCH ×4 (04:20→21:44)
[2018-03-05] MEDS: Promethazine HCl 25 MG/ML VIAL IM/IV PRN ×3 (04:23→21:42)
[2018-03-05 05:31] LABS: Anion Gap 13 mmol/L (10-20); BUN (Urea Nitrogen) 44 mg/dL (8.4-25.7); Calc. Creatinine Clearance 22 mL/min (70-130); Carbon Dioxide 16 mmol/L (23-31); Chloride 116 mmol/L (98-107); Estimated GFR-MDRD 20; Glucose 120 mg/dL (83-110); Potassium 3.5 mmol/L (3.5-5.1); Sodium 141 mmol/L (136-145)
--- NOTE | 2018-03-05 07:51 | EKG ---
Test Reason : Blood Pressure : / mmHG Vent. Rate : 086 BPM Atrial Rate : 086 BPM P-R Int : 162 ms QRS Dur : 098 ms QT Int : 362 ms P-R-T Axes : 073 -56 073 degrees QTc Int : 433 ms Sinus rhythm with Premature supraventricular complexes Left axis deviation Nonspecific ST and T wave abnormality Abnormal ECG When compared with ECG of 02-MAR-2018 14:53, (Unconfirmed) Sinus rhythm has replaced Junctional rhythm Confirmed by KADEEM ARRIAGA ([id number]) on 03/05/2018 7:51:02 AM Referred By: Confirmed By:KADEEM ARRIAGA
[2018-03-05] MEDS: Apixaban 2.5 MG TAB PO SCH ×2 (09:40→21:42)
[2018-03-05] MEDS: Famotidine 20 MG TAB PO SCH (09:40)
--- NOTE | 2018-03-05 14:10 | EKG ---
Test Reason : Blood Pressure : / mmHG Vent. Rate : 091 BPM Atrial Rate : 076 BPM P-R Int : 000 ms QRS Dur : 094 ms QT Int : 374 ms P-R-T Axes : 000 -46 055 degrees QTc Int : 460 ms Sinus rhythm with occasional , and consecutive Premature ventricular complexes Left axis deviation Nonspecific ST and T wave abnormality Prolonged QT Left Anterior Fascicular Block Abnormal ECG Confirmed by SIRISHA DAVEY DO ([id number]), photograph editor RIAN RAUSCH ([id number]) on 03/05/2018 2:09:37 PM Referred By: Confirmed By:SIRISHA DAVEY DO
[2018-03-05] MEDS: Ondansetron PF 4 MG/2 ML Vial IVP PRN (15:33)
--- NOTE | 2018-03-05 17:47 | PDOC.PN ---
- Subjective Encounter Start Date: 03/05/18 Encounter Start Time: 07:40 Pt seen for followup re: diarrhea. Reports diarrlea is better. Not ambulating. - Objective Resuscitation Status: Resuscitation Status FULL:Full Resuscitation MAR Reviewed: Yes Vital Signs & Weight: Vital Signs (12 hours) Temp Pulse Pulse Pulse Resp BP BP 03/05/18 15:40 98.9 F 76 13 03/05/18 13:39 79 85 130/68 130/69 03/05/18 11:10 98.2 F 72 13 03/05/18 07:00 98.0 F 74 14 BP Pulse Ox 03/05/18 15:40 116/63 95 03/05/18 13:39 03/05/18 11:10 139/63 94 L 03/05/18 07:00 111/65 94 L Weight Admit Weight 186 lb 14.4 oz Weight 189 lb 3.2 oz I&O: 03/04/18 03/05/18 03/06/18 06:59 06:59 06:59 Intake Total 3270 2390 1100 Output Total 1660 Balance 1610 2390 1100 Result Diagrams: 03/03/18 04:26 03/05/18 04:54 EKG Reviewed by me: Yes (Tele: NSR) Phys Exam - Physical Examination Constitutional: NAD HEENT: moist MMs Neck: supple Respiratory: clear to auscultation bilateral Cardiovascular: RRR Gastrointestinal: soft Neurological: moves all 4 limbs Psychiatric: normal affect Dx/Plan (1) Diarrhea Code(s): R19.7 - DIARRHEA, UNSPECIFIED Status: Acute Qualifiers: Diarrhea type: unspecified type Qualified Code(s): R19.7 - Diarrhea, unspecified (2) Dehydration Code(s): E86.0 - DEHYDRATION Status: Acute Comment: Improved (3) HTN (hypertension) Code(s): I10 - ESSENTIAL (PRIMARY) HYPERTENSION Status: Chronic Comment: controlled (4) History of pulmonary embolus (PE) Code(s): Z86.711 - PERSONAL HISTORY OF PULMONARY EMBOLISM Status: Chronic Comment: continue eliquis (5) Arrhythmia Code(s): I49.9 - CARDIAC ARRHYTHMIA, UNSPECIFIED Status: Resolved Qualifiers: Arrhythmia type: supraventricular tachycardia Qualified Code(s): I47.1 - Supraventricular tachycardia - Plan * . Review of Systems - Review of Systems Constitutional: weakness Cardiovascular: negative: chest pain, palpitations, orthopnea, paroxysmal nocturnal dyspnea, edema, light headedness Gastrointestinal: Diarrhea. negative: Nausea, Vomiting, Abdominal Pain, Constipation, Melena, Hematochezia - Medications/Allergies Allergies/Adverse Reactions: Allergies Allergy/AdvReac Type Severity Reaction Status Date / Time No Known Allergies Allergy Verified 03/02/18 21:05 Medications: Current Medications Acetaminophen (Tylenol) 650 mg PO Q4H PRN PRN Reason: Headache/Fever/Mild Pain (1-3) Apixaban (Eliquis) 2.5 mg PO BID [facility] Last Admin: 03/05/18 09:40 Dose: 2.5 mg Benzonatate (Tessalon) 100 mg PO Q4H PRN PRN Reason: Cough Bisacodyl (Dulcolax) 10 mg PO DAILYPRN PRN PRN Reason: Constipation Clonidine (Catapres) 0.1 mg PO Q4H PRN PRN Reason: Systolic BP > 160 Diphenoxylate HCl/Atropine (Lomotil) 1 tab PO Q6H PRN PRN Reason: Diarrhea/Loose Stools Last Admin: 03/03/18 17:47 Dose: 1 tab Famotidine (Pepcid) 20 mg PO DAILY [facility] Last Admin: 03/05/18 09:40 Dose: 20 mg Guaifenesin (Robitussin Sf) 200 mg PO Q4H PRN PRN Reason: Cough Hydralazine HCl (Apresoline) 10 mg SLOW IVP Q4H PRN PRN Reason: Systolic BP > 170 Potassium Chloride/Sodium Chloride (Ns 0.9% W/ 20 Meq Kcl) 1,000 ml in 1,000 mls @ 75 mls/hr IV .[id number] [facility] Last Admin: 03/05/18 15:45 Dose: 1,000 mls Loratadine (Claritin) 10 mg PO DAILYPRN PRN PRN Reason: Sinus Symptoms Metoprolol Tartrate (Lopressor) 5 mg IVP Q6H [facility] Last Admin: 03/05/18 15:32 Dose: 5 mg Nitroglycerin (Nitrostat) 0.4 mg SL Q5MIN PRN PRN Reason: Chest Pain Ondansetron HCl (Zofran) 4 mg IVP Q6H PRN PRN Reason: Nausea/Vomiting Last Admin: 03/05/18 15:33 Dose: 4 mg Ondansetron HCl (Zofran Odt) 8 mg SL Q6H PRN PRN Reason: NAUSEA,VOMITING Last Admin: 03/03/18 21:32 Dose: 8 mg Prochlorperazine Maleate (Compazine) 10 mg PO Q4H PRN PRN Reason: Nausea/Vomiting Promethazine HCl (Phenergan) 12.5 mg IM/IV Q6H PRN PRN Reason: Nausea/Vomiting Last Admin: 03/05/18 09:42 Dose: 12.5 mg Senna/Docusate Sodium (Senokot S) 2 tab PO BID PRN PRN Reason: Constipation Sodium Chloride (Flush - Normal Saline) 10 ml IVF Q12HR [facility] Last Admin: 03/05/18 09:42 Dose: 10 ml Sodium Chloride (Flush - Normal Saline) 10 ml IVF PRN PRN PRN Reason: Saline Flush Last Admin: 03/04/18 09:43 Dose: 10 ml Tramadol HCl (Ultram) 50 mg PO Q4H PRN PRN Reason: Moderate Pain (4-6)
[2018-03-06] MEDS: Metoprolol Tartrate 5 MG/5 ML VIAL IVP SCH ×4 (04:01→21:50)
[2018-03-06] MEDS: Promethazine HCl 25 MG/ML VIAL IM/IV PRN ×2 (04:02→10:41)
[2018-03-06] MEDS: NS 0.9% w/ 20 MEQ KCL 1,000 ML/1,000 ML BAG IV SCH ×2 (04:16→21:44)
[2018-03-06 05:25] LABS: Hemoglobin 9.5 g/dL (14.0-18.0); Platelet Count 230 thou/uL (130-400)
[2018-03-06 05:31] LABS: Anion Gap 14 mmol/L (10-20); BUN (Urea Nitrogen) 62 mg/dL (8.4-25.7); Calc. Creatinine Clearance 22 mL/min (70-130); Calcium 8.2 mg/dL (7.8-10.44); Carbon Dioxide 14 mmol/L (23-31); Chloride 118 mmol/L (98-107); Estimated GFR-MDRD 19; Glucose 122 mg/dL (83-110); Potassium 3.7 mmol/L (3.5-5.1); Sodium 142 mmol/L (136-145)
[2018-03-06] MEDS: Ondansetron PF 4 MG/2 ML Vial IVP PRN (08:03)
[2018-03-06] MEDS ORDERED: Megestrol Acetate 40 MG TAB PO SCH (09:00)
[2018-03-06] MEDS: Famotidine 20 MG TAB PO SCH (09:09)
[2018-03-06] MEDS: Apixaban 2.5 MG TAB PO SCH ×2 (09:09→21:45)
--- NOTE | 2018-03-06 13:54 | CT ---
CT OF HEAD NONCONTRAST: Indication: Intractable nausea, vomiting. FINDINGS: There is moderate global atrophy with compensatory dilatation of the ventricular system. Mild chronic ischemic disease of the cerebral white matter is present. No acute intracranial hemorrhage or mass e ffect. Incidental note of retention cyst formation and opacification of paranasal sinuses. IMPRESSION: 1. No acute intracranial abnormalities. 2. 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 POS: [facility]
--- NOTE | 2018-03-06 15:28 | PDOC.PN ---
- Subjective Encounter Start Date: 03/06/18 Encounter Start Time: 08:20 Pt seen for followup re: nausea and vomiting. Denies fevers or chills. c/o weakness overall - Objective Resuscitation Status: Resuscitation Status FULL:Full Resuscitation MAR Reviewed: Yes Vital Signs & Weight: Vital Signs (12 hours) Temp Pulse Resp BP Pulse Ox 03/06/18 12:00 89 18 122/65 97 03/06/18 08:00 97 03/06/18 07:17 97.9 F 87 13 127/60 92 L 03/06/18 04:00 98.5 F 92 22 H 117/67 94 L Weight Admit Weight 186 lb 14.4 oz Weight 194 lb 3.2 oz I&O: 03/05/18 03/06/18 03/07/18 06:59 06:59 06:59 Intake Total 2390 2187 Output Total 190 Balance 2390 1996 Result Diagrams: 03/06/18 04:59 03/06/18 04:59 EKG Reviewed by me: Yes (Tele: NSR) Phys Exam - Physical Examination Constitutional: NAD HEENT: moist MMs Neck: supple Respiratory: clear to auscultation bilateral Cardiovascular: RRR Gastrointestinal: soft, non-tender, positive bowel sounds distention Neurological: moves all 4 limbs Psychiatric: normal affect Skin: no rash Dx/Plan (1) Nausea and vomiting Code(s): R11.2 - NAUSEA WITH VOMITING, UNSPECIFIED Status: Acute Comment: PRN antiemetics. Check CT brain to r/o intracranial pathology. (2) HTN (hypertension) Code(s): I10 - ESSENTIAL (PRIMARY) HYPERTENSION Status: Chronic Comment: controlled (3) History of pulmonary embolus (PE) Code(s): Z86.711 - PERSONAL HISTORY OF PULMONARY EMBOLISM Status: Chronic Comment: on eliquis (4) Arrhythmia Code(s): I49.9 - CARDIAC ARRHYTHMIA, UNSPECIFIED Status: Resolved Qualifiers: Arrhythmia type: supraventricular tachycardia Qualified Code(s): I47.1 - Supraventricular tachycardia (5) Diarrhea Code(s): R19.7 - DIARRHEA, UNSPECIFIED Status: Resolved Qualifiers: Diarrhea type: unspecified type Qualified Code(s): R19.7 - Diarrhea, unspecified (6) Dehydration Code(s): E86.0 - DEHYDRATION Status: Resolved Comment: Improved - Plan * . Review of Systems - Review of Systems Constitutional: weakness. negative: fever, chills, sweats, malaise Cardiovascular: negative: chest pain, palpitations, orthopnea, paroxysmal nocturnal dyspnea, edema, light headedness Gastrointestinal: Nausea, Vomiting. negative: Abdominal Pain, Diarrhea, Constipation, Melena, Hematochezia - Medications/Allergies Allergies/Adverse Reactions: Allergies Allergy/AdvReac Type Severity Reaction Status Date / Time No Known Allergies Allergy Verified 03/02/18 21:05 Medications: Current Medications Acetaminophen (Tylenol) 650 mg PO Q4H PRN PRN Reason: Headache/Fever/Mild Pain (1-3) Apixaban (Eliquis) 2.5 mg PO BID [facility] Last Admin: 03/06/18 09:09 Dose: 2.5 mg Benzonatate (Tessalon) 100 mg PO Q4H PRN PRN Reason: Cough Bisacodyl (Dulcolax) 10 mg PO DAILYPRN PRN PRN Reason: Constipation Clonidine (Catapres) 0.1 mg PO Q4H PRN PRN Reason: Systolic BP > 160 Diphenoxylate HCl/Atropine (Lomotil) 1 tab PO Q6H PRN PRN Reason: Diarrhea/Loose Stools Last Admin: 03/03/18 17:47 Dose: 1 tab Famotidine (Pepcid) 20 mg PO DAILY [facility] Last Admin: 03/06/18 09:09 Dose: 20 mg Guaifenesin (Robitussin Sf) 200 mg PO Q4H PRN PRN Reason: Cough Hydralazine HCl (Apresoline) 10 mg SLOW IVP Q4H PRN PRN Reason: Systolic BP > 170 Potassium Chloride/Sodium Chloride (Ns 0.9% W/ 20 Meq Kcl) 1,000 ml in 1,000 mls @ 75 mls/hr IV .[id number] [facility] Last Admin: 03/06/18 04:16 Dose: 1,000 mls Loratadine (Claritin) 10 mg PO DAILYPRN PRN PRN Reason: Sinus Symptoms Methylcellulose (Citrucel) 500 mg PO DAILY [facility] Metoprolol Tartrate (Lopressor) 5 mg IVP Q6H [facility] Last Admin: 03/06/18 10:05 Dose: 5 mg Nitroglycerin (Nitrostat) 0.4 mg SL Q5MIN PRN PRN Reason: Chest Pain Ondansetron HCl (Zofran) 4 mg IVP BID [facility] Promethazine HCl (Phenergan) 12.5 mg IM/IV Q6H PRN PRN Reason: Nausea/Vomiting Last Admin: 03/06/18 10:41 Dose: 12.5 mg Senna/Docusate Sodium (Senokot S) 2 tab PO BID PRN PRN Reason: Constipation Sodium Chloride (Flush - Normal Saline) 10 ml IVF Q12HR [facility] Last Admin: 03/06/18 09:09 Dose: Not Given Sodium Chloride (Flush - Normal Saline) 10 ml IVF PRN PRN PRN Reason: Saline Flush Last Admin: 03/04/18 09:43 Dose: 10 ml Tramadol HCl (Ultram) 50 mg PO Q4H PRN PRN Reason: Moderate Pain (4-6)
--- NOTE | 2018-03-06 16:17 | CON ---
DATE OF CONSULTATION: 03/06/2018 REASON FOR CONSULTATION: Nausea, vomiting evaluation for possible PEG tube placement. CONSULTING PHYSICIAN: Dr. Ryder Smith. HISTORY OF PRESENT ILLNESS: The patient is an 82-year-old gentleman with past medical history of bladder cancer with metastatic disease to the colon, currently getting chemotherapy with his third round of chemotherapy shortly before admission. Pulmonary embolism on chronic anticoagulation with Eliquis, hypertension, and coronary artery disease who was initially admitted to the hospital with complaints of nausea, vomiting and diarrhea. He states that he was recently diagnosed with bladder cancer in 11/2017 and noted to have metastatic disease to his colon. He was subsequently evaluated by the Oncology Service and was on his third round of when he has been getting chemotherapy as part of the treatment for this condition. He had his third round of chemotherapy around 1-1.5 weeks ago and since that time he had been having increased frequency of liquid bowel movements having approximately 3-4 large volume liquid bowel movements per day. With his increase in his diarrhea, he also experienced increased nausea and vomiting and between the nausea, the vomiting and the diarrhea experience significant dehydration which prompted him to seek healthcare assistance at [facility]. During the course of his hospitalization, he has been having increased nausea and vomiting with inability to tolerate p.o. or medication. As part of his treatment here and had been having elevated heart rates due to his inability to take his oral medications; however, his nausea and vomiting has improved over the last 24-48 hours to the point where he has only had one episode of vomiting within the last 24 hours and characterized as a small amount of bilious fluid. He also adds that his diarrhea has improved to the point where he is still having approximately 1-2 small volume liquid bowel movements per day when compared to 3 -4 large volume liquid bowel movements per day on admission. He states that with the nausea this had not occurred until his last round of chemotherapy and his nausea and vomiting would occur with eating, where he would gag and cough up phlegm, but no actual emesis. However, he did have episodes of increased coughing completely outside of eating where he would have episodes of vomiting with these kind of posttussive episodes. Currently he denies any fevers, chills , dysphagia, odynophagia or constipation. PAST MEDICAL HISTORY: As per HPI. PAST SURGICAL HISTORY: Cataract surgery, hernia surgery and stent placement. SOCIAL HISTORY: Denies any tobacco, alcohol or illicit drug use. FAMILY HISTORY: Denies any GI malignancies. OUTPATIENT MEDICATIONS: Eliquis 2.5 b.i.d. and Norvasc 5 mg daily. ALLERGIES: No known drug allergies. PHYSICAL EXAMINATION: VITAL SIGNS: Temperature 97.9, pulse 87, blood pressure 127/60, respiratory rate 13, satting 92% on room air. GENERAL: The patient was lying in bed in no acute distress. Alert and oriented x4, appears very frail, almost cachectic. HEENT: NECK: Supple. No JVD or scleral icterus noted. Normocephalic, atraumatic. CARDIOVASCULAR: Tachycardic rate, but regular rhythm. No discernible murmurs, gallops or rubs. RESPIRATORY: Coarse breath sounds heard in the bilateral lower lung bases, but otherwise clear to auscultation. ABDOMEN: Hypoactive bowel sounds, soft. Mild abdominal distention with tenderness to palpation in the left upper quadrant, left flank and periumbilical regions. EXTREMITIES: Trace/1+ edema in the bilateral lower extremities extending to mid zuñiga. LABORATORY DATA: CBC on 03/03/2018 showing a white blood cell count of 6 and platelets of 248 and hemoglobin and hematocrit repeated today showed hemoglobin of 9.5, hematocrit 29.1. Chemistry shows sodium of 142, potassium 3.7, chloride 118, CO2 14, BUN 62, creatinine 3.15, glucose 122. Urinalysis obtained on 03/03/2018 showed an increase in protein, glucose, as well as trace blood with 7-10 RBCs and 4-6 white blood cells concerning for possible UTI. IMAGING DATA: CT of the abdomen and pelvis obtained on 03/02/2018 showed abdominal ascites, moderate distention of the gallbladder with layering increased density that they relate to sludge or gravel-like cholelithiasis. There was also pulmonary parenchymal nodularity as well as reticular nodularity of the intra-abdominal fat which could be related to a possible complex ascites versus omental tumor deposition. ASSESSMENT AND PLAN: The patient is an 82-year-old male with past medical history of bladder cancer with colonic metastatic disease on chemotherapy, pulmonary embolism diagnosed in 11/2017 on Eliquis for anticoagulation therapy, hypertension, and coronary artery disease, presenting with nausea, vomiting, and diarrhea. NAUSEA AND VOMITING: The patient has had an increase in his nausea and vomiting since his initiation of last round of chemotherapy characterized as approximately 3-4 discrete episodes of nausea and vomiting per day with nonbloody, bilious fluid. However, during the course of this hospitalization with antiemetic control, he has had a significant decrease in the amount of nausea and vomiting episodes now occurring only once within the last 24 hours with minimal amount of watery emesis. At this point, the most likely reason for his nausea and vomiting would be possible GI irritation and/or mucositis related to his recent round of chemotherapy and at this point I would recommend treating his symptoms conservatively with scheduled antiemetics and promethazine as needed. If in the future his nausea and vomiting becomes a bit more of an issue to the point where he can tolerate p.o. medications, consideration for other modalities may be warranted. RECOMMENDATIONS: 1. We would schedule Zofran 4 mg b.i.d. with promethazine as needed for nausea/ vomiting breakthrough symptoms. I would discontinue the prochlorperazine as it hits the same receptors as promethazine and could potentially create dopaminergic type symptoms and/or altered mental status. 2. We will start patient on PPI 40 mg daily for possible acid reflux. 3. If the patient's nausea and vomiting is not controlled with more conservative measures, you could consider placement of an NG tube, at which point it could be used to decompress the upper GI tract and for administration of medications. 4. Given the presence of significant ascites (most likely malignant ascites), PEG tube is contraindicated due to increased risk of peritoneal infection and wound breakdown. Instead, I would attempt to control his nausea/vomiting and optimize nutrition as much as possible. DIARRHEA: The patient initially presented to the hospital with his primary complaint being diarrhea, having approximately 3-4 large volume liquid bowel movements per day shortly after the administration of his last round of chemotherapy. Again at this point in time his diarrhea seems to be more related to the chemotherapy administration given the lack of infectious stool studies positive for an obvious pathogen. During the course of this hospitalization, his diarrhea has also improved to the point where he is now having 1-2 small volume liquid bowel movements per day. At this point, anti- motility agents could be considered due to the lack of infectious etiology and/ or fiber supplementation could be considered for stool bulking type measures. RECOMMENDATIONS: 1. I agree with the administration of either loperamide or atropine/ diphenoxylate for antidiarrheal control. 2. I would add 500 mg Citrucel daily as part of the stool bulking technique. We will continue to follow. Please call with any questions. MTDD
[2018-03-06] MEDS: Ondansetron PF 4 MG/2 ML Vial IVP SCH (21:45)
[2018-03-06] MEDS: Diphenoxylate HCl/Atropine Tablet PO PRN (21:57)
[2018-03-07] MEDS: Metoprolol Tartrate 5 MG/5 ML VIAL IVP SCH ×2 (05:15→10:35)
[2018-03-07 05:42] LABS: BUN (Urea Nitrogen) 62 mg/dL (8.4-25.7); Calc. Creatinine Clearance 21 mL/min (70-130); Calcium 8.1 mg/dL (7.8-10.44); Carbon Dioxide 12 mmol/L (23-31); Chloride 120 mmol/L (98-107); Estimated GFR-MDRD 17; Glucose 110 mg/dL (83-110); Potassium 3.3 mmol/L (3.5-5.1); Sodium 144 mmol/L (136-145)
[2018-03-07 05:45] LABS: Anion Gap 15 mmol/L (10-20)
[2018-03-07] MEDS: NS 0.9% w/ 20 MEQ KCL 1,000 ML/1,000 ML BAG IV SCH ×2 (09:04→22:36)
[2018-03-07] MEDS: Citrucel 500 MG TAB PO SCH (09:05)
[2018-03-07] MEDS: Apixaban 2.5 MG TAB PO SCH ×2 (09:05→21:08)
[2018-03-07] MEDS: Ondansetron PF 4 MG/2 ML Vial IVP SCH ×2 (09:05→21:09)
[2018-03-07] MEDS: Famotidine 20 MG TAB PO SCH (09:05)
--- NOTE | 2018-03-07 10:31 | PQF ---
Date: 03-07-18 ATTN: DR. BEATRICE SIFUENTES Please exercise your independent, professional judgment in responding to the clarification form. Clinical indicators are provided on the bottom of this form for your review Please check appropriate box(s): [ ] Protein Calorie Malnutrition: [ ] Mild [ ] Moderate [ ] Severe [ ] Other Malnutrition (please specify) __ [ ] Cachexia [ ] Other diagnosis [ ] Unable to determine In addition, please specify: Present on Admission (POA): [ ] Yes [ ] No [ ] Unable to determine CLINICAL INDICATORS - SIGNS / SYMPTOMS / LABS BMI of 26 CAB STATION ATTENDANT CONSULT 03-05-18: Patient states he has no appetite, has been refusing all meals and has not been drinking the Ensure because "it tastes awful." Discussed importance of nutrition and adequate intake, encouraged oral supplements as medicine. She reports patient starting Megace last week d/t low appetite and general lack of taste since starting chemotherapy. He was eating some until ~4 days COMPLAINT INVESTIGATOR, stopped eating entirely. He does not drink oral supplements, discussed benefits and encouraged intake. does not know UBW, thinks it was "200 something" lbs a couple of months ago, thinks he has lost about 20 lbs. RISK FACTORS: CAB STATION ATTENDANT CONSULT 03-05-18: He says the diarrhea is slowing down to one BM daily, however, RN had already documented 4 BMs on the I&Os sheet. CAB STATION ATTENDANT CONSULT 03-05-18: Hx of pulmonary embolism on Eliquis, bladder cancer with colonic metastasis, HTN, former tobacco abuse, chemotherapy, decreased appetite, diarrhea TREATMENT: CAB STATION ATTENDANT CONSULT 03-07-18: 1. Continue liberalized Regular diet to promote PO intake 2. Continue Ensure Enlive TID, encouraging intake. RD will monitor renal function and change per NSP if no improvement 3. Recommend an appetite stimulant 4. Provide antidiarrheals PRN 5. If patient continues to refuse PO intake, would recommend placing a dobhoff and initiating Suplena TF, advancing as tolerated to goal rate of 55 mL/hr with ProStat TID Moderate Malnutrition (in acute illness) Energy Intake: <75% of estimated energy requirement for > 7 days Weight Loss: 1-2%/1 week; 5%/ 1 month; 7.5%/3 months Other: mild body fat loss; mild muscle mass loss; mild fluid accumulation; Severe Malnutrition (in acute illness) Energy Intake: < 50% of estimated energy requirement for > 5 days Weight Loss: >1-2%/1 week; >5%/1 month; >7.5%/3 months Other: moderate body fat loss; moderate muscle mass loss; moderate- severe fluid accumulation; measurably reduced windows deployment technician strength Moderate Malnutrition (in chronic illness) Energy Intake: <75% of estimated energy requirement for >1 month Weight Loss: 5%/1 month; 7.5%/3 months; 10%/6 months; 20%/1 year Other: mild body fat loss; mild muscle mass loss; mild fluid accumulation Severe Malnutrition (in chronic illness) Energy Intake: <75% of estimated energy requirement for >1 month Weight Loss: >5%/1 month; >7.5%/3 months; >10%/6 months; >20%/1 year Other: severe body fat loss; severe muscle mass loss; severe fluid accumulation ; measurably reduced windows deployment technician strength (This form is maintained as a part of the permanent medical record) 2014 [email or web address]. All Rights Reserved [email or web address] Office: [phone] [facility]OSPITALAaron
[2018-03-07] MEDS ORDERED: Metoprolol Tartrate 5 MG/5 ML VIAL IVP PRN (10:55)
[2018-03-07] MEDS: Polyvinyl Alcohol 1.4%/Povidone 0.6% Opth Drops L EYE SCH ×2 (12:15→19:00)
--- NOTE | 2018-03-07 16:13 | PRG ---
DATE OF SERVICE: 03/07/2018 REASON FOR CONSULTATION: Nausea, vomiting, moderate protein calorie malnutrition. SUBJECTIVE: The patient states that he did well overnight with only one episode of diarrhea within t he last 12-24 hours. He also states that his nausea and vomiting is significantly improved when comp ared to previous with no evidence of nausea or vomiting this morning and he was able to tolerate a sm all amount of his morning breakfast without difficulty. Currently, he denies any nausea, vomiting, f carlos, chills, dysphagia, odynophagia or constipation. He does continue to have significant abdomina l distention, but this is most likely due to his ascites. OBJECTIVE: VITAL SIGNS: Temperature 97.1, pulse 72, blood pressure 116/60, respiratory rate 18, satting 99% on room air. GENERAL: Patient is lying in bed in no acute distress. Alert and oriented x4, appears very frail, a lmost cachectic. CARDIOVASCULAR: Regular rate and rhythm with no discernible murmurs, gallops or rubs. RESPIRATORY: Clear to auscultation bilaterally. ABDOMEN: Hypoactive bowel sounds, soft. Mild to moderate abdominal distention with tenderness in th e left upper quadrant. EXTREMITIES: Trace/1+ bilateral lower extremity edema is extending to mid zuñiga. LABORATORY DATA: CBC with no current data. Chemistry with sodium of 144, potassium 3.3, chloride 12 0, CO2 12, BUN 62, creatinine 3.39, glucose 110. IMAGING DATA: No current GI imaging is available for review. ASSESSMENT AND PLAN: The patient is an 82-year-old male with past medical history of bladder cancer with colonic metastatic disease on chemotherapy, pulmonary embolism diagnosed in 05/2017, on Eliquis, hypertension, and coronary artery disease, presenting with nausea, vomiting, and diarrhea after his most recent bout of chemotherapy. NAUSEA AND VOMITING: The patient is presenting with increased nausea and vomiting since initiation o f his last round of chemotherapy with approximately 3-4 discrete episodes of nausea and vomiting per day since that time; however, with the use of antiemetics during this hospitalization, he has had dec reasing amounts of nausea and vomiting with no episodes within the last 24 hours. At this point, the most likely reason for his nausea and vomiting would be the side effects related to recent chemother apy and/or mucositis again related to chemotherapy. With his increase in nausea and vomiting, he had been unable to maintain decent calorie nutrition, but as his nausea and vomiting improves, hopefully this will also improve as well. RECOMMENDATIONS: 1. We would continue scheduled Zofran 4 mg b.i.d. as well as promethazine as needed for nausea and v omiting. 2. Continue the patient on pantoprazole 40 mg daily. 3. If the patient's nausea and vomiting is not controlled with these more conservative measures, he could consider placement of an NG tube. 4. With his increased nausea and vomiting and inability to tolerate p.o. intake, it is easy to consi gely possible PEG tube to supplement nutrition; however, given his metastatic disease and significant ascites, this would be right for the complications including wound breakdown at the site of PEG tube placement as well as peritoneal infection after placement. PEG tube at this time would be relatively contraindicated. DIARRHEA: The patient initially presented to the hospital with his primary complaint being diarrhea, having approximately 3-4 large volume liquid bowel movements per day shortly appearing after his las t round of chemotherapy; however, during the course of this hospitalization, his diarrhea has improve d with antidiarrheal medications as well as a negative infectious stool workup. RECOMMENDATIONS: 1. Would continue administration of either loperamide or atropine diphenoxylate for antidiarrheal co ntrol. 2. We will continue Citrucel 500 mg daily as part of a stool bulking technique. We will sign off at this time. Please call with any additional questions.
--- NOTE | 2018-03-07 17:58 | PDOC.PN ---
- Subjective Encounter Start Date: 03/07/18 Encounter Start Time: 08:00 Pt seen for followup re: nausea and vomiting. Feels better today, was able to tolearte some diet. - Objective Resuscitation Status: Resuscitation Status FULL:Full Resuscitation MAR Reviewed: Yes Vital Signs & Weight: Vital Signs (12 hours) Temp Pulse Pulse Resp BP BP BP 03/07/18 16:00 97.1 F L 72 16 120/67 03/07/18 12:19 97.1 F L 72 18 116/60 03/07/18 11:48 72 116/60 03/07/18 09:15 03/07/18 07:32 98.2 F 93 18 116/66 Pulse Ox 03/07/18 16:00 99 03/07/18 12:19 99 03/07/18 11:48 03/07/18 09:15 93 L 03/07/18 07:32 94 L Weight Admit Weight 186 lb 14.4 oz Weight 183 lb 11.2 oz I&O: 03/06/18 03/07/18 03/08/18 06:59 06:59 06:59 Intake Total 2187 968 Output Total 190 200 Balance 1996 768 Result Diagrams: 03/06/18 04:59 03/07/18 05:01 EKG Reviewed by me: Yes (Tele: NSR) Phys Exam - Physical Examination Constitutional: NAD HEENT: moist MMs Neck: supple Respiratory: clear to auscultation bilateral Cardiovascular: RRR Gastrointestinal: soft Neurological: moves all 4 limbs Psychiatric: normal affect Dx/Plan (1) Nausea and vomiting Code(s): R11.2 - NAUSEA WITH VOMITING, UNSPECIFIED Status: Acute Comment: Improving, nil acute on CT brain (2) HTN (hypertension) Code(s): I10 - ESSENTIAL (PRIMARY) HYPERTENSION Status: Chronic Comment: controlled (3) History of pulmonary embolus (PE) Code(s): Z86.711 - PERSONAL HISTORY OF PULMONARY EMBOLISM Status: Chronic Comment: continue eliquis (4) Severe protein-calorie malnutrition Code(s): E43 - UNSPECIFIED SEVERE PROTEIN-CALORIE MALNUTRITION Status: Chronic Comment: family not interested in PEG tube or NG tube feeds (5) Arrhythmia Code(s): I49.9 - CARDIAC ARRHYTHMIA, UNSPECIFIED Status: Resolved Qualifiers: Arrhythmia type: supraventricular tachycardia Qualified Code(s): I47.1 - Supraventricular tachycardia (6) Diarrhea Code(s): R19.7 - DIARRHEA, UNSPECIFIED Status: Resolved Qualifiers: Diarrhea type: unspecified type Qualified Code(s): R19.7 - Diarrhea, unspecified (7) Dehydration Code(s): E86.0 - DEHYDRATION Status: Resolved Comment: Improved - Plan plan discussed w/ family * . Discussed with family. Pt is not interested in PEG tube at this time, since dietary intake seems to be improving. Review of Systems - Review of Systems Cardiovascular: negative: chest pain, palpitations, orthopnea, paroxysmal nocturnal dyspnea, edema, light headedness Gastrointestinal: Nausea. negative: Vomiting, Abdominal Pain, Diarrhea, Constipation, Melena, Hematochezia - Medications/Allergies Allergies/Adverse Reactions: Allergies Allergy/AdvReac Type Severity Reaction Status Date / Time No Known Allergies Allergy Verified 03/02/18 21:05 Medications: Current Medications Acetaminophen (Tylenol) 650 mg PO Q4H PRN PRN Reason: Headache/Fever/Mild Pain (1-3) Apixaban (Eliquis) 2.5 mg PO BID [facility] [place] Last Admin: 03/07/18 09:05 Dose: 2.5 mg Benzonatate (Tessalon) 100 mg PO Q4H PRN PRN Reason: Cough Bisacodyl (Dulcolax) 10 mg PO DAILYPRN PRN PRN Reason: Constipation Clonidine (Catapres) 0.1 mg PO Q4H PRN PRN Reason: Systolic BP > 160 Diphenoxylate HCl/Atropine (Lomotil) 1 tab PO Q6H PRN PRN Reason: Diarrhea/Loose Stools Last Admin: 03/06/18 21:57 Dose: 1 tab Famotidine (Pepcid) 20 mg PO DAILY [facility] [place] Last Admin: 03/07/18 09:05 Dose: 20 mg Guaifenesin (Robitussin Sf) 200 mg PO Q4H PRN PRN Reason: Cough Hydralazine HCl (Apresoline) 10 mg SLOW IVP Q4H PRN PRN Reason: Systolic BP > 170 Potassium Chloride/Sodium Chloride (Ns 0.9% W/ 20 Meq Kcl) 1,000 ml in 1,000 mls @ 75 mls/hr IV .[id number] [facility] [place] Last Admin: 03/07/18 09:04 Dose: 1,000 mls Loratadine (Claritin) 10 mg PO DAILYPRN PRN PRN Reason: Sinus Symptoms Methylcellulose (Citrucel) 500 mg PO DAILY [facility] [place] Last Admin: 03/07/18 09:05 Dose: 500 mg Metoprolol Tartrate (Lopressor) 25 mg PO BID [facility] [place] Metoprolol Tartrate (Lopressor) 5 mg IVP ONE PRN PRN Reason: HR over 100bpm Stop: 03/09/18 10:56 Nitroglycerin (Nitrostat) 0.4 mg SL Q5MIN PRN PRN Reason: Chest Pain Ondansetron HCl (Zofran) 4 mg IVP BID [facility] [place] Last Admin: 03/07/18 09:05 Dose: 4 mg Polyvinyl Alcohol/Povidone (Refresh Classic Eye Drops) 1 each L EYE Q8H [facility] [place] Last Admin: 03/07/18 12:15 Dose: 1 each Promethazine HCl (Phenergan) 12.5 mg IM/IV Q6H PRN PRN Reason: Nausea/Vomiting Last Admin: 03/06/18 10:41 Dose: 12.5 mg Senna/Docusate Sodium (Senokot S) 2 tab PO BID PRN PRN Reason: Constipation Sodium Chloride (Flush - Normal Saline) 10 ml IVF Q12HR [facility] [place] Last Admin: 03/07/18 09:05 Dose: 10 ml Sodium Chloride (Flush - Normal Saline) 10 ml IVF PRN PRN PRN Reason: Saline Flush Last Admin: 03/04/18 09:43 Dose: 10 ml Tramadol HCl (Ultram) 50 mg PO Q4H PRN PRN Reason: Moderate Pain (4-6)
[2018-03-07] MEDS: Metoprolol Tartrate 25 MG TAB PO SCH (21:09)
[2018-03-08] MEDS: Polyvinyl Alcohol 1.4%/Povidone 0.6% Opth Drops L EYE SCH ×3 (04:09→21:08)
[2018-03-08 05:29] LABS: Hemoglobin 9.8 g/dL (14.0-18.0); Platelet Count 220 thou/uL (130-400)
[2018-03-08 05:32] LABS: Anion Gap 11 mmol/L (10-20); BUN (Urea Nitrogen) 67 mg/dL (8.4-25.7); Calc. Creatinine Clearance 18 mL/min (70-130); Calcium 8.4 mg/dL (7.8-10.44); Carbon Dioxide 13 mmol/L (23-31); Chloride 121 mmol/L (98-107); Estimated GFR-MDRD 16; Glucose 97 mg/dL (83-110); Potassium 3.3 mmol/L (3.5-5.1); Sodium 142 mmol/L (136-145)
[2018-03-08] MEDS: Diphenoxylate HCl/Atropine Tablet PO PRN ×2 (08:30→21:07)
[2018-03-08] MEDS: Metoprolol Tartrate 25 MG TAB PO SCH (08:31)
[2018-03-08] MEDS: Apixaban 2.5 MG TAB PO SCH ×2 (08:31→21:07)
[2018-03-08] MEDS: Citrucel 500 MG TAB PO SCH (08:31)
[2018-03-08] MEDS: Famotidine 20 MG TAB PO SCH (08:31)
[2018-03-08] MEDS: Ondansetron PF 4 MG/2 ML Vial IVP SCH ×2 (08:31→21:07)
[2018-03-08] MEDS: NS 0.9% w/ 20 MEQ KCL 1,000 ML/1,000 ML BAG IV SCH (13:26)
--- NOTE | 2018-03-08 14:52 | PDOC.CTH ---
<Savannah Sutton - Last Filed: 03/08/18 22:42> Cardiology Progress Note - Subjective The pt seen and examined. No overnight events. No cardiac complaints. Per family, the pt has had multiple diarrhea through last night until now. - Objective Vital Signs Temp Pulse Resp BP BP Pulse Ox 03/08/18 12:38 98.4 F 86 16 119/71 95 03/08/18 08:20 97 03/08/18 07:33 97.7 F 99 16 117/66 97 03/08/18 05:41 94 L 03/08/18 04:00 98.2 F 86 20 123/63 94 L Admit Weight 186 lb 14.4 oz Weight 198 lb 11.2 oz 03/07/18 03/08/18 03/09/18 06:59 06:59 06:59 Intake Total 968 1512 Output Total 200 275 Balance 768 1237 - Physical Examination General/Neuro: other: (drowsy) Lungs: CTA Heart: RRR Abdomen: soft Extremities: other: (No edema) - Telemetry Telemetry Rhythm: SR - Labs Result Diagrams: 03/08/18 04:54 03/08/18 04:54 Troponin/CKMB Troponin I 0.066 ng/mL (< 0.028) H 03/03/18 21:03 - Assessment/Plan 1. Hx of SVT - He had 12 beats of SVT around 0830 on 03/08/18 (last episode was on 03/06/18); On Metoprolol 25mg BID, which will be increased to 50mg BID from this PM; Cont. to monitor on tele 2. CAD with Hx of stent placement in 2000 - on BBlocker. Not on Plavix or ASA, but on Eliquis. 3. HTN - stable 4. Hx of PE in 05/2017 - on Eliquis 5. N&V&Diarrhea - C-diff is negative; on IV fluid. 6. Bladder carcinoma MAR reviewed <Addendum> @ 2230, ECG showed SVTs. SBP > 110 at that time and the pt was asymptomatic. Decrease Metoprolol from 50mg to 25mg BID and order Kcl 40 mEq PO x1 for K level today was 3.3. Will check Mag tomorrow AM. Review of Systems - Review of Systems Constitutional: reports: weakness EENTM: reports: no symptoms reported Respiratory: reports: no symptoms reported Cardiac (ROS): reports: no symptoms reported ABD/GI: reports: no symptoms reported : reports: no symptoms reported <Jelani Soares - Last Filed: 03/08/18 23:43> Cardiology Progress Note - Objective Vital Signs Temp Pulse Resp BP Pulse Ox 03/08/18 22:33 98.2 F 83 12 110/55 L 94 L 03/08/18 19:55 97.9 F 79 20 102/63 96 03/08/18 16:27 97.8 F 87 18 111/67 95 03/08/18 12:38 98.4 F 86 16 119/71 95 Admit Weight 186 lb 14.4 oz Weight 198 lb 11.2 oz 03/07/18 03/08/18 03/09/18 06:59 06:59 06:59 Intake Total 968 1512 1305 Output Total 200 275 Balance 768 1237 1305 - Labs Result Diagrams: 03/08/18 04:54 03/08/18 04:54 Troponin/CKMB Troponin I 0.066 ng/mL (< 0.028) H 03/03/18 21:03 - Assessment/Plan Pt. seen and evaluated by me. I agree with the A/P by the CANDY SUPERVISOR. We have discussed the pt. and the plan.Chest clear RRR.
--- NOTE | 2018-03-08 17:19 | PDOC.PN ---
- Subjective Encounter Start Date: 03/08/18 Encounter Start Time: 07:40 Pt seen for followup re: nausea and vomiting. Feels slightly better. Still has on and off diarrhea. - Objective Resuscitation Status: Resuscitation Status FULL:Full Resuscitation MAR Reviewed: Yes Vital Signs & Weight: Vital Signs (12 hours) Temp Pulse Resp BP Pulse Ox 03/08/18 16:27 97.8 F 87 18 111/67 95 03/08/18 12:38 98.4 F 86 16 119/71 95 03/08/18 08:20 97 03/08/18 07:33 97.7 F 99 16 117/66 97 03/08/18 05:41 94 L Weight Admit Weight 186 lb 14.4 oz Weight 198 lb 11.2 oz I&O: 03/07/18 03/08/18 03/09/18 06:59 06:59 06:59 Intake Total 968 1512 Output Total 200 275 Balance 768 1237 Result Diagrams: 03/08/18 04:54 03/09/18 05:34 EKG Reviewed by me: Yes (Tele: NSR) Phys Exam - Physical Examination Constitutional: NAD HEENT: moist MMs Neck: supple Respiratory: clear to auscultation bilateral Cardiovascular: RRR Gastrointestinal: soft Neurological: moves all 4 limbs Psychiatric: normal affect Dx/Plan (1) Nausea and vomiting Code(s): R11.2 - NAUSEA WITH VOMITING, UNSPECIFIED Status: Acute Comment: Improving (2) HTN (hypertension) Code(s): I10 - ESSENTIAL (PRIMARY) HYPERTENSION Status: Chronic Comment: controlled (3) History of pulmonary embolus (PE) Code(s): Z86.711 - PERSONAL HISTORY OF PULMONARY EMBOLISM Status: Chronic Comment: on eliquis (4) Severe protein-calorie malnutrition Code(s): E43 - UNSPECIFIED SEVERE PROTEIN-CALORIE MALNUTRITION Status: Chronic Comment: Pt and do not want PEG or NG tube feeds, want to see if his appetite improves (5) Diarrhea Code(s): R19.7 - DIARRHEA, UNSPECIFIED Status: Chronic Qualifiers: Diarrhea type: unspecified type Qualified Code(s): R19.7 - Diarrhea, unspecified Comment: Improved (6) Arrhythmia Code(s): I49.9 - CARDIAC ARRHYTHMIA, UNSPECIFIED Status: Resolved Qualifiers: Arrhythmia type: supraventricular tachycardia Qualified Code(s): I47.1 - Supraventricular tachycardia (7) Dehydration Code(s): E86.0 - DEHYDRATION Status: Resolved - Plan * . Review of Systems - Review of Systems Cardiovascular: negative: chest pain, palpitations, orthopnea, paroxysmal nocturnal dyspnea, edema, light headedness Gastrointestinal: Nausea. negative: Vomiting, Abdominal Pain, Diarrhea, Constipation, Melena, Hematochezia - Medications/Allergies Allergies/Adverse Reactions: Allergies Allergy/AdvReac Type Severity Reaction Status Date / Time No Known Allergies Allergy Verified 03/02/18 21:05 Medications: Current Medications Acetaminophen (Tylenol) 650 mg PO Q4H PRN PRN Reason: Headache/Fever/Mild Pain (1-3) Apixaban (Eliquis) 2.5 mg PO BID [facility] Last Admin: 03/08/18 08:31 Dose: 2.5 mg Benzonatate (Tessalon) 100 mg PO Q4H PRN PRN Reason: Cough Bisacodyl (Dulcolax) 10 mg PO DAILYPRN PRN PRN Reason: Constipation Clonidine (Catapres) 0.1 mg PO Q4H PRN PRN Reason: Systolic BP > 160 Diphenoxylate HCl/Atropine (Lomotil) 1 tab PO Q6H PRN PRN Reason: Diarrhea/Loose Stools Last Admin: 03/08/18 08:30 Dose: 1 tab Famotidine (Pepcid) 20 mg PO DAILY [facility] Last Admin: 03/08/18 08:31 Dose: 20 mg Guaifenesin (Robitussin Sf) 200 mg PO Q4H PRN PRN Reason: Cough Hydralazine HCl (Apresoline) 10 mg SLOW IVP Q4H PRN PRN Reason: Systolic BP > 170 Potassium Chloride/Sodium Chloride (Ns 0.9% W/ 20 Meq Kcl) 1,000 ml in 1,000 mls @ 75 mls/hr IV .[id number] [facility] Last Admin: 03/08/18 13:26 Dose: 1,000 mls Loratadine (Claritin) 10 mg PO DAILYPRN PRN PRN Reason: Sinus Symptoms Methylcellulose (Citrucel) 500 mg PO DAILY [facility] Last Admin: 03/08/18 08:31 Dose: 500 mg Metoprolol Tartrate (Lopressor) 5 mg IVP ONE PRN PRN Reason: HR over 100bpm Stop: 03/09/18 10:56 Metoprolol Tartrate (Lopressor) 50 mg PO BID [facility] Nitroglycerin (Nitrostat) 0.4 mg SL Q5MIN PRN PRN Reason: Chest Pain Ondansetron HCl (Zofran) 4 mg IVP BID [facility] Last Admin: 03/08/18 08:31 Dose: 4 mg Polyvinyl Alcohol/Povidone (Refresh Classic Eye Drops) 1 each L EYE Q8H [facility] Last Admin: 03/08/18 11:02 Dose: 1 each Promethazine HCl (Phenergan) 12.5 mg IM/IV Q6H PRN PRN Reason: Nausea/Vomiting Last Admin: 03/06/18 10:41 Dose: 12.5 mg Senna/Docusate Sodium (Senokot S) 2 tab PO BID PRN PRN Reason: Constipation Sodium Chloride (Flush - Normal Saline) 10 ml IVF Q12HR [facility] Last Admin: 03/08/18 08:32 Dose: 10 ml Sodium Chloride (Flush - Normal Saline) 10 ml IVF PRN PRN PRN Reason: Saline Flush Last Admin: 03/04/18 09:43 Dose: 10 ml Tramadol HCl (Ultram) 50 mg PO Q4H PRN PRN Reason: Moderate Pain (4-6)
[2018-03-08] MEDS ORDERED: Metoprolol Tartrate 50 MG TAB PO SCH (21:00)
[2018-03-08] MEDS ORDERED: Metoprolol Tartrate 25 MG TAB PO SCH (22:45)
[2018-03-08] MEDS ORDERED: Potassium Chloride 20 MEQ TAB PO SCH (23:00)
[2018-03-09] MEDS: NS 0.9% w/ 20 MEQ KCL 1,000 ML/1,000 ML BAG IV SCH ×2 (02:54→17:47)
[2018-03-09] MEDS: Polyvinyl Alcohol 1.4%/Povidone 0.6% Opth Drops L EYE SCH ×3 (02:54→20:21)
[2018-03-09 06:03] LABS: Anion Gap 10 mmol/L (10-20); BUN (Urea Nitrogen) 69 mg/dL (8.4-25.7); Calc. Creatinine Clearance 19 mL/min (70-130); Calcium 8.3 mg/dL (7.8-10.44); Carbon Dioxide 13 mmol/L (23-31); Chloride 123 mmol/L (98-107); Estimated GFR-MDRD 16; Glucose 103 mg/dL (83-110); Magnesium 1.2 mg/dL (1.6-2.6); Potassium 3.5 mmol/L (3.5-5.1); Sodium 142 mmol/L (136-145)
[2018-03-09] MEDS: Diphenoxylate HCl/Atropine Tablet PO PRN (07:33)
[2018-03-09] MEDS ORDERED: Metoprolol Tartrate 25 MG TAB PO SCH (09:00)
[2018-03-09] MEDS: Famotidine 20 MG TAB PO SCH (10:25)
[2018-03-09] MEDS: Apixaban 2.5 MG TAB PO SCH ×2 (10:25→20:21)
[2018-03-09] MEDS: Citrucel 500 MG TAB PO SCH (10:26)
[2018-03-09] MEDS: Ondansetron PF 4 MG/2 ML Vial IVP SCH ×2 (10:30→20:21)
--- NOTE | 2018-03-09 14:38 | CON ---
DATE OF CONSULTATION: 03/09/2018 REASON FOR CONSULTATION: Colon cancer with bladder metastasis. 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 He is currently receiving treatment with continuous infusional 5-FU presented to the hospital with generalized weakness and diarrhea. The patient did notice diarrhea after his second cycle of chemotherapy that was ongoing with worsening in the last few days prior to admission. Pt c/o nausea and vomiting. The patient has not been eating or drinking very much and he had been getting weaker and weaker. The patient presented to the ER with blood pressure 92/66. Otherwise, stable vital signs. The patient has chronic kidney disease and his creatinine was stable on admission to the hospital. CT scan showed some gallbladder distention and ultrasound was then completed that did not show any evidence of cholecystitis. Of note, patient also had a pulmonary embolism in and is currently taking Eliquis. CT head was done for vomiting and was negative for any acute intracranial events. REVIEW OF SYSTEMS: Ten point review of systems negative except as per HPI. 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 PAST SURGICAL HISTORY: Cardiac stent x1, bowel perforation repair, left cataract surgery, hernia repair. SOCIAL HISTORY: , lives with . Quit smoking years ago. No current alcohol use. FAMILY HISTORY: Breast cancer in a sister. ALLERGIES: No known drug allergies. CURRENT MEDICATIONS: Reviewed. LABORATORY DATA: Hemoglobin 9.5, hematocrit 29.1, platelets 230, BUN 62, creatinine 3.15. IMAGING DATA: CT abdomen and pelvis dated 03/02/2018 shows abdominal ascites, moderate distention of gallbladder, and complex reticular nodularity of the intra-abdominal fat which could be on the basis of complex ascites versus omental tumor deposition. Abdominal ultrasound dated 03/02/2018 shows minimally distended gallbladder without gallbladder wall thickening or gallstones. Negative Lee sign. CT of the brain without contrast dated 03/06 shows no acute intracranial abnormalities, global atrophy and chronic microvascular ischemic disease. ASSESSMENT AND PLAN: An 82-year-old male with metastatic adenocarcinoma of GI primary with mets to bladder, currently on infusional 5-FU presenting with weakness, diarrhea, nausea, and vomiting. The patient was noted to have acute kidney injury on chronic kidney disease which has stabilized since admission. Patient's diarrhea had improved, but was still having nausea and vomiting which is now slightly improved as well. Vital signs are currently stable and patient is afebrile. Recommend continued IV hydration until the patient is able to tolerate feeds with no more vomiting. Patient also is on Eliquis for history of PE in 11/2017. Patient may continue follow up with Dr. Gallagher in the clinic after discharge. Thank you for the consultation. RAMÓN
[2018-03-09] MEDS ORDERED: Magnesium 2 GM/50 ML 2 GM in Premix Bag 1 BAG IVPB SCH (15:00)
--- NOTE | 2018-03-09 15:01 | PDOC.CTH ---
<Savannah Sutton - Last Filed: 03/09/18 15:00> Cardiology Progress Note - Subjective The pt seen and examined. No overnight events. No cardiac complaints. Family stated his diarrhea became low today. - Objective Vital Signs Temp Pulse Pulse Resp BP BP BP 03/09/18 10:34 75 118/70 03/09/18 07:45 97.5 F L 78 18 128/71 03/09/18 05:33 03/09/18 03:10 98.2 F 81 16 115/65 Pulse Ox Pulse Ox 03/09/18 10:34 95 03/09/18 07:45 98 03/09/18 05:33 96 03/09/18 03:10 96 Admit Weight 186 lb 14.4 oz Weight 198 lb 03/08/18 03/09/18 03/10/18 06:59 06:59 06:59 Intake Total 1512 3147 Output Total 275 75 Balance 1237 3072 - Physical Examination General/Neuro: other: (drowsy) Lungs: CTA (diminished at bases) Heart: RRR Abdomen: soft Extremities: other: (No edema) - Telemetry Telemetry Rhythm: SR - Labs Result Diagrams: 03/08/18 04:54 03/09/18 05:34 Troponin/CKMB Troponin I 0.066 ng/mL (< 0.028) H 03/03/18 21:03 - Assessment/Plan 1. Hx of SVT - He had 12 beats of SVT around 0830 on 03/08/18 (last episode was on 03/06/18); Cont having SVT and PAT with Metoprolol 25mg BID. change to Metoprolol 25mg TID. Mg replacement for today level 1.2. Cont. to monitor on tele 2. CAD with Hx of stent placement in 2000 - on BBlocker. Not on Plavix or ASA, but on Eliquis. 3. HTN - stable 4. Hx of PE in 05/2017 - on Eliquis 5. N&V&Diarrhea - C-diff is negative; on IV fluid. 6. Bladder carcinoma MAR reviewed Review of Systems - Review of Systems Constitutional: reports: no symptoms reported EENTM: reports: no symptoms reported Respiratory: reports: no symptoms reported Cardiac (ROS): reports: no symptoms reported ABD/GI: reports: no symptoms reported : reports: no symptoms reported Musculoskeletal: reports: no symptoms reported <Jelani Soares - Last Filed: 03/09/18 22:14> Cardiology Progress Note - Objective Vital Signs Temp Pulse Pulse Resp BP BP Pulse Ox 03/09/18 16:28 97.7 F 78 18 120/69 98 03/09/18 12:00 97.9 F 77 16 116/67 98 03/09/18 10:34 75 118/70 Pulse Ox 03/09/18 16:28 03/09/18 12:00 03/09/18 10:34 95 Admit Weight 186 lb 14.4 oz Weight 198 lb 03/08/18 03/09/18 03/10/18 06:59 06:59 06:59 Intake Total 1512 3147 960 Output Total 275 75 Balance 1237 3072 960 - Labs Result Diagrams: 03/08/18 04:54 03/09/18 05:34 Troponin/CKMB Troponin I 0.066 ng/mL (< 0.028) H 03/03/18 21:03 - Assessment/Plan Pt. seen and evaluated by me. I agree with the A/P by the [employer]ICER. We have discussed the pt. and the plan.Chest clear RRR.
--- NOTE | 2018-03-09 15:16 | PDOC.PN ---
- Subjective Encounter Start Date: 03/09/18 Encounter Start Time: 08:20 Pt seen for followup re: nausea and vomiting. Feels better, tolerating jello. - Objective Resuscitation Status: Resuscitation Status FULL:Full Resuscitation MAR Reviewed: Yes Vital Signs & Weight: Vital Signs (12 hours) Temp Pulse Pulse Resp BP BP Pulse Ox 03/09/18 10:34 75 118/70 03/09/18 07:45 97.5 F L 78 18 128/71 98 03/09/18 05:33 96 Pulse Ox 03/09/18 10:34 95 03/09/18 07:45 03/09/18 05:33 Weight Admit Weight 186 lb 14.4 oz Weight 198 lb I&O: 03/08/18 03/09/18 03/10/18 06:59 06:59 06:59 Intake Total 1512 3147 Output Total 275 75 Balance 1237 3072 Result Diagrams: 03/08/18 04:54 03/09/18 05:34 EKG Reviewed by me: Yes (Tele: NSR) Phys Exam - Physical Examination Constitutional: NAD HEENT: moist MMs Neck: supple Respiratory: clear to auscultation bilateral Cardiovascular: RRR Gastrointestinal: soft Neurological: moves all 4 limbs Psychiatric: normal affect Dx/Plan (1) Nausea and vomiting Code(s): R11.2 - NAUSEA WITH VOMITING, UNSPECIFIED Status: Acute Comment: Improving, advance diet to full fluid (2) HTN (hypertension) Code(s): I10 - ESSENTIAL (PRIMARY) HYPERTENSION Status: Chronic Comment: controlled (3) History of pulmonary embolus (PE) Code(s): Z86.711 - PERSONAL HISTORY OF PULMONARY EMBOLISM Status: Chronic Comment: on eliquis (4) Severe protein-calorie malnutrition Code(s): E43 - UNSPECIFIED SEVERE PROTEIN-CALORIE MALNUTRITION Status: Chronic Comment: pt reports oral intake is improving, does not want tube feeds (5) Diarrhea Code(s): R19.7 - DIARRHEA, UNSPECIFIED Status: Chronic Qualifiers: Diarrhea type: unspecified type Qualified Code(s): R19.7 - Diarrhea, unspecified Comment: Improved (6) Arrhythmia Code(s): I49.9 - CARDIAC ARRHYTHMIA, UNSPECIFIED Status: Resolved Qualifiers: Arrhythmia type: supraventricular tachycardia Qualified Code(s): I47.1 - Supraventricular tachycardia (7) Dehydration Code(s): E86.0 - DEHYDRATION Status: Resolved - Plan * . Review of Systems - Review of Systems Cardiovascular: negative: chest pain, palpitations, orthopnea, paroxysmal nocturnal dyspnea, edema, light headedness Gastrointestinal: Nausea. negative: Vomiting, Abdominal Pain, Diarrhea, Constipation, Melena, Hematochezia - Medications/Allergies Allergies/Adverse Reactions: Allergies Allergy/AdvReac Type Severity Reaction Status Date / Time No Known Allergies Allergy Verified 03/02/18 21:05 Medications: Current Medications Acetaminophen (Tylenol) 650 mg PO Q4H PRN PRN Reason: Headache/Fever/Mild Pain (1-3) Apixaban (Eliquis) 2.5 mg PO BID [facility] Last Admin: 03/09/18 10:25 Dose: 2.5 mg Benzonatate (Tessalon) 100 mg PO Q4H PRN PRN Reason: Cough Bisacodyl (Dulcolax) 10 mg PO DAILYPRN PRN PRN Reason: Constipation Clonidine (Catapres) 0.1 mg PO Q4H PRN PRN Reason: Systolic BP > 160 Diphenoxylate HCl/Atropine (Lomotil) 1 tab PO Q6H PRN PRN Reason: Diarrhea/Loose Stools Last Admin: 03/09/18 07:33 Dose: 1 tab Famotidine (Pepcid) 20 mg PO DAILY [facility] Last Admin: 03/09/18 10:25 Dose: 20 mg Guaifenesin (Robitussin Sf) 200 mg PO Q4H PRN PRN Reason: Cough Hydralazine HCl (Apresoline) 10 mg SLOW IVP Q4H PRN PRN Reason: Systolic BP > 170 Potassium Chloride/Sodium Chloride (Ns 0.9% W/ 20 Meq Kcl) 1,000 ml in 1,000 mls @ 75 mls/hr IV .[id number] [facility] Last Admin: 03/09/18 02:54 Dose: 1,000 mls Magnesium Sulfate 2 gm/ Device 50 mls @ 50 mls/hr IVPB NOW [facility] Stop: 03/09/18 17:00 Loratadine (Claritin) 10 mg PO DAILYPRN PRN PRN Reason: Sinus Symptoms Methylcellulose (Citrucel) 500 mg PO DAILY [facility] Last Admin: 03/09/18 10:26 Dose: 500 mg Metoprolol Tartrate (Lopressor) 25 mg PO TID [facility] Nitroglycerin (Nitrostat) 0.4 mg SL Q5MIN PRN PRN Reason: Chest Pain Ondansetron HCl (Zofran) 4 mg IVP BID [facility] Last Admin: 03/09/18 10:30 Dose: Not Given Polyvinyl Alcohol/Povidone (Refresh Classic Eye Drops) 1 each L EYE Q8H [facility] Last Admin: 03/09/18 12:46 Dose: 1 each Promethazine HCl (Phenergan) 12.5 mg IM/IV Q6H PRN PRN Reason: Nausea/Vomiting Last Admin: 03/06/18 10:41 Dose: 12.5 mg Senna/Docusate Sodium (Senokot S) 2 tab PO BID PRN PRN Reason: Constipation Sodium Chloride (Flush - Normal Saline) 10 ml IVF Q12HR [facility] Last Admin: 03/09/18 10:28 Dose: Not Given Sodium Chloride (Flush - Normal Saline) 10 ml IVF PRN PRN PRN Reason: Saline Flush Last Admin: 03/04/18 09:43 Dose: 10 ml Tramadol HCl (Ultram) 50 mg PO Q4H PRN PRN Reason: Moderate Pain (4-6)
[2018-03-09] MEDS: Metoprolol Tartrate 25 MG TAB PO SCH ×2 (16:28→20:22)
[2018-03-10 05:16] LABS: Anion Gap 7 mmol/L (10-20); BUN (Urea Nitrogen) 67 mg/dL (8.4-25.7); Calc. Creatinine Clearance 19 mL/min (70-130); Calcium 8.2 mg/dL (7.8-10.44); Carbon Dioxide 14 mmol/L (23-31); Estimated GFR-MDRD 16; Glucose 91 mg/dL (83-110); Potassium 4.1 mmol/L (3.5-5.1); Sodium 145 mmol/L (136-145)
[2018-03-10 05:20] LABS: Chloride 128 mmol/L (98-107)
[2018-03-10 05:27] LABS: Hemoglobin 9.6 g/dL (14.0-18.0); Platelet Count 193 thou/uL (130-400)
[2018-03-10] MEDS: Polyvinyl Alcohol 1.4%/Povidone 0.6% Opth Drops L EYE SCH ×3 (05:45→20:33)
[2018-03-10] MEDS: NS 0.9% w/ 20 MEQ KCL 1,000 ML/1,000 ML BAG IV SCH (05:47)
[2018-03-10] MEDS: Citrucel 500 MG TAB PO SCH (09:22)
[2018-03-10] MEDS: Apixaban 2.5 MG TAB PO SCH ×2 (09:22→20:38)
[2018-03-10] MEDS: Metoprolol Tartrate 25 MG TAB PO SCH ×3 (09:22→20:33)
[2018-03-10] MEDS: Famotidine 20 MG TAB PO SCH (09:23)
[2018-03-10] MEDS: Ondansetron PF 4 MG/2 ML Vial IVP SCH ×2 (09:23→20:33)
[2018-03-10] MEDS ORDERED: Dronabinol 2.5 MG CAP PO SCH (10:15)
[2018-03-10] MEDS: Dextrose 5%-Lactated Ringers 1,000 ML IV SCH ×2 (12:06→22:02)
[2018-03-10] MEDS: Dronabinol 2.5 MG CAP PO SCH (17:00)
--- NOTE | 2018-03-10 18:04 | PDOC.PN ---
- Subjective Encounter Start Date: 03/10/18 Encounter Start Time: 08:00 Pt seen for followup re: nausea and vomiting - Objective Resuscitation Status: Resuscitation Status FULL:Full Resuscitation MAR Reviewed: Yes Vital Signs & Weight: Vital Signs (12 hours) Temp Pulse Resp BP Pulse Ox 03/10/18 12:00 97.6 F 76 18 125/66 97 03/10/18 08:00 97.6 F 78 20 119/67 98 Weight Admit Weight 186 lb 14.4 oz Weight 201 lb I&O: 03/09/18 03/10/18 03/11/18 06:59 06:59 06:59 Intake Total 3147 1929 Output Total 75 200 Balance 3072 1729 Result Diagrams: 03/10/18 04:40 03/10/18 04:40 EKG Reviewed by me: Yes (Tele: NSR) Phys Exam - Physical Examination Constitutional: NAD HEENT: moist MMs Neck: supple Respiratory: clear to auscultation bilateral Cardiovascular: RRR Gastrointestinal: soft Neurological: moves all 4 limbs Psychiatric: normal affect Dx/Plan (1) Nausea and vomiting Code(s): R11.2 - NAUSEA WITH VOMITING, UNSPECIFIED Status: Acute Comment: Improving. Discussed with pt and re: marinol. Discussed side effects as well. Pt wants to trial marinol. Pt also wants diet advanced, will do. (2) HTN (hypertension) Code(s): I10 - ESSENTIAL (PRIMARY) HYPERTENSION Status: Chronic Comment: controlled (3) History of pulmonary embolus (PE) Code(s): Z86.711 - PERSONAL HISTORY OF PULMONARY EMBOLISM Status: Chronic Comment: on eliquis (4) Severe protein-calorie malnutrition Code(s): E43 - UNSPECIFIED SEVERE PROTEIN-CALORIE MALNUTRITION Status: Chronic Comment: trial marinol for appetite (5) Diarrhea Code(s): R19.7 - DIARRHEA, UNSPECIFIED Status: Chronic Qualifiers: Diarrhea type: unspecified type Qualified Code(s): R19.7 - Diarrhea, unspecified Comment: Improved, but pt still has occasional loose stool (6) Arrhythmia Code(s): I49.9 - CARDIAC ARRHYTHMIA, UNSPECIFIED Status: Resolved Qualifiers: Arrhythmia type: supraventricular tachycardia Qualified Code(s): I47.1 - Supraventricular tachycardia (7) Dehydration Code(s): E86.0 - DEHYDRATION Status: Resolved - Plan * . Change IV fluids to D5LR (hyperchloremia) Review of Systems - Review of Systems Constitutional: weakness Gastrointestinal: Nausea, Diarrhea. negative: Vomiting, Abdominal Pain, Constipation, Melena, Hematochezia Genitourinary: negative: Dysuria, Frequency, Incontinence, Hematuria, Retention - Medications/Allergies Allergies/Adverse Reactions: Allergies Allergy/AdvReac Type Severity Reaction Status Date / Time No Known Allergies Allergy Verified 03/02/18 21:05 Medications: Current Medications Acetaminophen (Tylenol) 650 mg PO Q4H PRN PRN Reason: Headache/Fever/Mild Pain (1-3) Apixaban (Eliquis) 2.5 mg PO BID [facility] Last Admin: 03/10/18 09:22 Dose: 2.5 mg Benzonatate (Tessalon) 100 mg PO Q4H PRN PRN Reason: Cough Bisacodyl (Dulcolax) 10 mg PO DAILYPRN PRN PRN Reason: Constipation Clonidine (Catapres) 0.1 mg PO Q4H PRN PRN Reason: Systolic BP > 160 Diphenoxylate HCl/Atropine (Lomotil) 1 tab PO Q6H PRN PRN Reason: Diarrhea/Loose Stools Last Admin: 03/09/18 07:33 Dose: 1 tab Dronabinol (Marinol) 2.5 mg PO BID-[facility] Last Admin: 03/10/18 17:00 Dose: 2.5 mg Famotidine (Pepcid) 20 mg PO DAILY [facility] Last Admin: 03/10/18 09:23 Dose: 20 mg Guaifenesin (Robitussin Sf) 200 mg PO Q4H PRN PRN Reason: Cough Hydralazine HCl (Apresoline) 10 mg SLOW IVP Q4H PRN PRN Reason: Systolic BP > 170 Dextrose/Lactated Ringer's (D5 Lr) 1,000 mls @ 75 mls/hr IV .[id number] [facility] Last Admin: 03/10/18 12:06 Dose: 1,000 mls Loratadine (Claritin) 10 mg PO DAILYPRN PRN PRN Reason: Sinus Symptoms Methylcellulose (Citrucel) 500 mg PO DAILY [facility] Last Admin: 03/10/18 09:22 Dose: 500 mg Metoprolol Tartrate (Lopressor) 25 mg PO TID [facility] Last Admin: 03/10/18 17:00 Dose: 25 mg Nitroglycerin (Nitrostat) 0.4 mg SL Q5MIN PRN PRN Reason: Chest Pain Ondansetron HCl (Zofran) 4 mg IVP BID [facility] Last Admin: 03/10/18 09:23 Dose: 4 mg Polyvinyl Alcohol/Povidone (Refresh Classic Eye Drops) 1 each L EYE Q8H [facility] Last Admin: 03/10/18 12:07 Dose: 1 each Promethazine HCl (Phenergan) 12.5 mg IM/IV Q6H PRN PRN Reason: Nausea/Vomiting Last Admin: 03/06/18 10:41 Dose: 12.5 mg Senna/Docusate Sodium (Senokot S) 2 tab PO BID PRN PRN Reason: Constipation Sodium Chloride (Flush - Normal Saline) 10 ml IVF Q12HR [facility] Last Admin: 03/10/18 09:23 Dose: 10 ml Sodium Chloride (Flush - Normal Saline) 10 ml IVF PRN PRN PRN Reason: Saline Flush Last Admin: 03/04/18 09:43 Dose: 10 ml Tramadol HCl (Ultram) 50 mg PO Q4H PRN PRN Reason: Moderate Pain (4-6)
[2018-03-11] MEDS: Polyvinyl Alcohol 1.4%/Povidone 0.6% Opth Drops L EYE SCH ×3 (03:54→21:08)
[2018-03-11 06:19] LABS: Anion Gap 14 mmol/L (10-20); BUN (Urea Nitrogen) 63 mg/dL (8.4-25.7); Calc. Creatinine Clearance 19 mL/min (70-130); Calcium 8.2 mg/dL (7.8-10.44); Estimated GFR-MDRD 15; Glucose 134 mg/dL (83-110); Potassium 3.7 mmol/L (3.5-5.1); Sodium 146 mmol/L (136-145)
[2018-03-11 06:27] LABS: Carbon Dioxide 9 mmol/L (23-31); Chloride 127 mmol/L (98-107)
[2018-03-11] MEDS: Dronabinol 2.5 MG CAP PO SCH ×2 (09:49→18:01)
[2018-03-11] MEDS: Citrucel 500 MG TAB PO SCH (09:50)
[2018-03-11] MEDS: Famotidine 20 MG TAB PO SCH (09:50)
[2018-03-11] MEDS: Ondansetron PF 4 MG/2 ML Vial IVP SCH ×2 (09:50→21:09)
[2018-03-11] MEDS: Apixaban 2.5 MG TAB PO SCH ×2 (09:50→21:07)
[2018-03-11] MEDS: Metoprolol Tartrate 25 MG TAB PO SCH ×3 (09:50→21:07)
[2018-03-11] MEDS: Dextrose 5%-Lactated Ringers 1,000 ML IV SCH (12:16)
--- NOTE | 2018-03-11 16:17 | PDOC.PN ---
- Subjective Encounter Start Date: 03/11/18 Encounter Start Time: 09:00 Pt seen for followup re: nausea and vomiting. reports pt is coughing when he tries to eat. - Objective Resuscitation Status: Resuscitation Status FULL:Full Resuscitation MAR Reviewed: Yes Vital Signs & Weight: Vital Signs (12 hours) Temp Pulse Resp BP BP Pulse Ox 03/11/18 16:02 97.9 F 75 18 109/64 97 03/11/18 12:19 97.4 F L 71 18 103/58 L 96 03/11/18 07:53 98.3 F 74 18 110/66 96 03/11/18 04:25 97.6 F 73 18 114/57 L 97 Weight Admit Weight 186 lb 14.4 oz Weight 207 lb 5 oz I&O: 03/10/18 03/11/18 03/12/18 06:59 06:59 06:59 Intake Total 1929 2110 Output Total 200 Balance 1729 2110 Result Diagrams: 03/10/18 04:40 03/11/18 04:42 EKG Reviewed by me: Yes (Tele: NSR) Phys Exam - Physical Examination Constitutional: NAD Dry mucosae; Both eyes eyelids sticky Neck: supple Respiratory: clear to auscultation bilateral Cardiovascular: RRR Gastrointestinal: soft Neurological: moves all 4 limbs Psychiatric: normal affect Dx/Plan (1) Nausea and vomiting Code(s): R11.2 - NAUSEA WITH VOMITING, UNSPECIFIED Status: Acute Comment: Pt 's reports that his appetite has improved but he is unable to eat due to coughing. Will request swallow eval. (2) HTN (hypertension) Code(s): I10 - ESSENTIAL (PRIMARY) HYPERTENSION Status: Chronic Comment: controlled (3) History of pulmonary embolus (PE) Code(s): Z86.711 - PERSONAL HISTORY OF PULMONARY EMBOLISM Status: Chronic Comment: on eliquis (4) Severe protein-calorie malnutrition Code(s): E43 - UNSPECIFIED SEVERE PROTEIN-CALORIE MALNUTRITION Status: Chronic Comment: started marinol for appetite (5) Diarrhea Code(s): R19.7 - DIARRHEA, UNSPECIFIED Status: Chronic Qualifiers: Diarrhea type: unspecified type Qualified Code(s): R19.7 - Diarrhea, unspecified Comment: Improved, but pt still has occasional loose stool (6) Arrhythmia Code(s): I49.9 - CARDIAC ARRHYTHMIA, UNSPECIFIED Status: Resolved Qualifiers: Arrhythmia type: supraventricular tachycardia Qualified Code(s): I47.1 - Supraventricular tachycardia (7) Dehydration Code(s): E86.0 - DEHYDRATION Status: Resolved - Plan * . Hyperchloremic acidosis likely a combination of alkali loss from diarrhea as well as chloride load from IV fluids. Anion gap is normal. Change IV fluids to D5W. Start ciprofloxacin eye drops for keli bacterial conjunctivitis. Review of Systems - Review of Systems Constitutional: weakness Cardiovascular: negative: chest pain, palpitations, orthopnea, paroxysmal nocturnal dyspnea, edema, light headedness Gastrointestinal: negative: Nausea, Vomiting, Abdominal Pain, Diarrhea, Constipation, Melena, Hematochezia - Medications/Allergies Allergies/Adverse Reactions: Allergies Allergy/AdvReac Type Severity Reaction Status Date / Time No Known Allergies Allergy Verified 03/02/18 21:05 Medications: Current Medications Acetaminophen (Tylenol) 650 mg PO Q4H PRN PRN Reason: Headache/Fever/Mild Pain (1-3) Apixaban (Eliquis) 2.5 mg PO BID [facility] Last Admin: 03/11/18 09:50 Dose: 2.5 mg Benzonatate (Tessalon) 100 mg PO Q4H PRN PRN Reason: Cough Bisacodyl (Dulcolax) 10 mg PO DAILYPRN PRN PRN Reason: Constipation Ciprofloxacin (Ciprofloxacin Hcl) 1 drop EA EYE [id number] [facility] Last Admin: 03/11/18 16:04 Dose: 1 each Clonidine (Catapres) 0.1 mg PO Q4H PRN PRN Reason: Systolic BP > 160 Diphenoxylate HCl/Atropine (Lomotil) 1 tab PO Q6H PRN PRN Reason: Diarrhea/Loose Stools Last Admin: 03/09/18 07:33 Dose: 1 tab Dronabinol (Marinol) 2.5 mg PO BID-AC [facility] Last Admin: 03/11/18 09:49 Dose: 2.5 mg Famotidine (Pepcid) 20 mg PO DAILY [facility] Last Admin: 03/11/18 09:50 Dose: 20 mg Guaifenesin (Robitussin Sf) 200 mg PO Q4H PRN PRN Reason: Cough Hydralazine HCl (Apresoline) 10 mg SLOW IVP Q4H PRN PRN Reason: Systolic BP > 170 Dextrose/Water (D5w) 1,000 mls @ 75 mls/hr IV .[id number] [facility] Loratadine (Claritin) 10 mg PO DAILYPRN PRN PRN Reason: Sinus Symptoms Methylcellulose (Citrucel) 500 mg PO DAILY [facility] Last Admin: 03/11/18 09:50 Dose: 500 mg Metoprolol Tartrate (Lopressor) 25 mg PO TID [facility] Last Admin: 03/11/18 16:03 Dose: 25 mg Nitroglycerin (Nitrostat) 0.4 mg SL Q5MIN PRN PRN Reason: Chest Pain Ondansetron HCl (Zofran) 4 mg IVP BID [facility] Last Admin: 03/11/18 09:50 Dose: 4 mg Polyvinyl Alcohol/Povidone (Refresh Classic Eye Drops) 1 each L EYE Q8H [facility] Last Admin: 03/11/18 12:16 Dose: 1 each Promethazine HCl (Phenergan) 12.5 mg IM/IV Q6H PRN PRN Reason: Nausea/Vomiting Last Admin: 03/06/18 10:41 Dose: 12.5 mg Senna/Docusate Sodium (Senokot S) 2 tab PO BID PRN PRN Reason: Constipation Sodium Chloride (Flush - Normal Saline) 10 ml IVF Q12HR [facility] Last Admin: 03/11/18 09:50 Dose: 10 ml Sodium Chloride (Flush - Normal Saline) 10 ml IVF PRN PRN PRN Reason: Saline Flush Last Admin: 03/04/18 09:43 Dose: 10 ml Tramadol HCl (Ultram) 50 mg PO Q4H PRN PRN Reason: Moderate Pain (4-6)
[2018-03-11] MEDS: Dextrose 5% in Water 1,000 ML IV SCH (17:57)
[2018-03-12] MEDS: Polyvinyl Alcohol 1.4%/Povidone 0.6% Opth Drops L EYE SCH ×3 (03:21→21:05)
[2018-03-12] MEDS: Dextrose 5% in Water 1,000 ML IV SCH ×3 (05:52→21:06)
[2018-03-12 06:35] LABS: Hemoglobin 9.1 g/dL (14.0-18.0); Platelet Count 195 thou/uL (130-400)
[2018-03-12 06:45] LABS: Anion Gap 10 mmol/L (10-20); BUN (Urea Nitrogen) 62 mg/dL (8.4-25.7); Calc. Creatinine Clearance 20 mL/min (70-130); Calcium 8.1 mg/dL (7.8-10.44); Carbon Dioxide 13 mmol/L (23-31); Chloride 123 mmol/L (98-107); Estimated GFR-MDRD 15; Glucose 106 mg/dL (83-110); Potassium 3.6 mmol/L (3.5-5.1); Sodium 142 mmol/L (136-145)
[2018-03-12] MEDS: Metoprolol Tartrate 25 MG TAB PO SCH ×3 (10:29→21:04)
[2018-03-12] MEDS: Citrucel 500 MG TAB PO SCH (10:29)
[2018-03-12] MEDS: Famotidine 20 MG TAB PO SCH (10:29)
[2018-03-12] MEDS: Apixaban 2.5 MG TAB PO SCH ×2 (10:29→21:27)
[2018-03-12] MEDS: Ondansetron PF 4 MG/2 ML Vial IVP SCH ×2 (10:30→21:04)
[2018-03-12] MEDS: Dronabinol 2.5 MG CAP PO SCH ×2 (10:30→17:28)
[2018-03-12] MEDS: Diphenoxylate HCl/Atropine Tablet PO PRN (10:30)
[2018-03-12 12:09] VITALS: BMI 29.7
--- NOTE | 2018-03-12 17:30 | PDOC.PN ---
- Subjective Encounter Start Date: 03/12/18 Encounter Start Time: 09:40 Pt seen for followup re: nausea and vomiting. Feels better today. - Objective Resuscitation Status: Resuscitation Status FULL:Full Resuscitation MAR Reviewed: Yes Vital Signs & Weight: Vital Signs (12 hours) Temp Pulse Resp BP Pulse Ox 03/12/18 15:23 97.5 F L 69 20 87/56 L 97 03/12/18 13:32 96 03/12/18 12:00 97.7 F 77 20 112/59 L 96 03/12/18 08:30 98 03/12/18 07:40 96.1 F L 75 13 109/60 97 Weight Admit Weight 186 lb 14.4 oz Weight 207 lb 7 oz I&O: 03/11/18 03/12/18 03/13/18 06:59 06:59 06:59 Intake Total 2110 2570 0 Balance 2110 2570 0 Result Diagrams: 03/12/18 04:33 03/12/18 04:33 EKG Reviewed by me: Yes (Tele: NSR) Phys Exam - Physical Examination Constitutional: NAD HEENT: moist MMs eyes less sticky today Respiratory: clear to auscultation bilateral Cardiovascular: RRR Neurological: moves all 4 limbs Psychiatric: normal affect Dx/Plan (1) Nausea and vomiting Code(s): R11.2 - NAUSEA WITH VOMITING, UNSPECIFIED Status: Acute Comment: swallow eval pending. Appetite better. (2) HTN (hypertension) Code(s): I10 - ESSENTIAL (PRIMARY) HYPERTENSION Status: Chronic Comment: controlled (3) History of pulmonary embolus (PE) Code(s): Z86.711 - PERSONAL HISTORY OF PULMONARY EMBOLISM Status: Chronic Comment: continue eliquis (4) Severe protein-calorie malnutrition Code(s): E43 - UNSPECIFIED SEVERE PROTEIN-CALORIE MALNUTRITION Status: Chronic Comment: Increase marinol dose to 5 mg BID (5) Diarrhea Code(s): R19.7 - DIARRHEA, UNSPECIFIED Status: Chronic Qualifiers: Diarrhea type: unspecified type Qualified Code(s): R19.7 - Diarrhea, unspecified Comment: Improved (6) Arrhythmia Code(s): I49.9 - CARDIAC ARRHYTHMIA, UNSPECIFIED Status: Resolved Qualifiers: Arrhythmia type: supraventricular tachycardia Qualified Code(s): I47.1 - Supraventricular tachycardia (7) Dehydration Code(s): E86.0 - DEHYDRATION Status: Resolved - Plan * . continue cipro eye drops for bacterial conjunctivitis. Discussed with and pt, they are now a little more open to the idea of NG feeds, but they want to try other things first. Review of Systems - Review of Systems Cardiovascular: negative: chest pain, palpitations, orthopnea, paroxysmal nocturnal dyspnea, edema, light headedness Gastrointestinal: negative: Nausea, Vomiting, Abdominal Pain, Diarrhea, Constipation, Melena, Hematochezia - Medications/Allergies Allergies/Adverse Reactions: Allergies Allergy/AdvReac Type Severity Reaction Status Date / Time No Known Allergies Allergy Verified 03/02/18 21:05 Medications: Current Medications Acetaminophen (Tylenol) 650 mg PO Q4H PRN PRN Reason: Headache/Fever/Mild Pain (1-3) Apixaban (Eliquis) 2.5 mg PO BID [facility] Last Admin: 03/12/18 10:29 Dose: 2.5 mg Benzonatate (Tessalon) 100 mg PO Q4H PRN PRN Reason: Cough Bisacodyl (Dulcolax) 10 mg PO DAILYPRN PRN PRN Reason: Constipation Ciprofloxacin (Ciprofloxacin Hcl) 1 drop EA EYE [id number] [facility] Last Admin: 03/12/18 13:13 Dose: 1 drop Clonidine (Catapres) 0.1 mg PO Q4H PRN PRN Reason: Systolic BP > 160 Diphenoxylate HCl/Atropine (Lomotil) 1 tab PO Q6H PRN PRN Reason: Diarrhea/Loose Stools Last Admin: 03/12/18 10:30 Dose: 1 tab Dronabinol (Marinol) 2.5 mg PO BID-[facility] Last Admin: 03/12/18 10:30 Dose: 2.5 mg Famotidine (Pepcid) 20 mg PO DAILY [facility] Last Admin: 03/12/18 10:29 Dose: 20 mg Guaifenesin (Robitussin Sf) 200 mg PO Q4H PRN PRN Reason: Cough Hydralazine HCl (Apresoline) 10 mg SLOW IVP Q4H PRN PRN Reason: Systolic BP > 170 Dextrose/Water (D5w) 1,000 mls @ 75 mls/hr IV .[id number] [facility] Last Admin: 03/12/18 05:52 Dose: 1,000 mls Loratadine (Claritin) 10 mg PO DAILYPRN PRN PRN Reason: Sinus Symptoms Methylcellulose (Citrucel) 500 mg PO DAILY [facility] Last Admin: 03/12/18 10:29 Dose: 500 mg Metoprolol Tartrate (Lopressor) 25 mg PO TID [facility] Last Admin: 03/12/18 16:29 Dose: Not Given Nitroglycerin (Nitrostat) 0.4 mg SL Q5MIN PRN PRN Reason: Chest Pain Ondansetron HCl (Zofran) 4 mg IVP BID [facility] Last Admin: 03/12/18 10:30 Dose: 4 mg Polyvinyl Alcohol/Povidone (Refresh Classic Eye Drops) 1 each L EYE Q8H [facility] Last Admin: 03/12/18 10:31 Dose: 1 each Promethazine HCl (Phenergan) 12.5 mg IM/IV Q6H PRN PRN Reason: Nausea/Vomiting Last Admin: 03/06/18 10:41 Dose: 12.5 mg Senna/Docusate Sodium (Senokot S) 2 tab PO BID PRN PRN Reason: Constipation Sodium Chloride (Flush - Normal Saline) 10 ml IVF Q12HR [facility] Last Admin: 03/12/18 10:31 Dose: 10 ml Sodium Chloride (Flush - Normal Saline) 10 ml IVF PRN PRN PRN Reason: Saline Flush Last Admin: 03/04/18 09:43 Dose: 10 ml Tramadol HCl (Ultram) 50 mg PO Q4H PRN PRN Reason: Moderate Pain (4-6)
[2018-03-13] MEDS: Polyvinyl Alcohol 1.4%/Povidone 0.6% Opth Drops L EYE SCH ×3 (03:15→20:38)
[2018-03-13 06:07] LABS: Anion Gap 7 mmol/L (10-20); BUN (Urea Nitrogen) 64 mg/dL (8.4-25.7); Calc. Creatinine Clearance 19 mL/min (70-130); Carbon Dioxide 14 mmol/L (23-31); Chloride 122 mmol/L (98-107); Estimated GFR-MDRD 14; Glucose 113 mg/dL (83-110); Potassium 3.1 mmol/L (3.5-5.1); Sodium 140 mmol/L (136-145)
[2018-03-13 07:46] LABS: Phosphorus 2.6 mg/dL (2.3-4.7)
[2018-03-13] MEDS: Apixaban 2.5 MG TAB PO SCH ×3 (09:34→21:24)
[2018-03-13] MEDS: Citrucel 500 MG TAB PO SCH ×2 (09:35→10:03)
[2018-03-13] MEDS: Potassium Citrate 10 MEQ TAB PO SCH ×3 (09:35→20:37)
[2018-03-13] MEDS: Metoprolol Tartrate 25 MG TAB PO SCH ×4 (09:40→21:25)
[2018-03-13] MEDS: Ondansetron PF 4 MG/2 ML Vial IVP SCH (09:40)
[2018-03-13] MEDS: Famotidine 20 MG TAB PO SCH ×2 (09:40→10:03)
[2018-03-13] MEDS: Dronabinol 2.5 MG CAP PO SCH ×3 (09:46→18:21)
[2018-03-13] MEDS: Dextrose 5% in Water 1,000 ML IV SCH (09:56)
[2018-03-13] MEDS ORDERED: Magnesium Sulfate 4 GM in Sodium Chloride 0.9% 250 ML 250 ML IVPB SCH (10:00)
--- NOTE | 2018-03-13 10:16 | PDOC.PN ---
- Subjective Encounter Start Date: 03/13/18 Encounter Start Time: 07:20 -: old records requested/rev pt is sleepy, bedside, still has diarrhoea Patient seen and examined. - Objective Resuscitation Status: Resuscitation Status FULL:Full Resuscitation MAR Reviewed: Yes Vital Signs & Weight: Vital Signs (12 hours) Temp Pulse Resp BP Pulse Ox 03/13/18 07:06 97.8 F 67 16 96/60 93 L 03/13/18 03:29 98.6 F 80 20 100/58 L 95 03/12/18 23:47 98.0 F 76 16 95/55 L 94 L Weight Admit Weight 186 lb 14.4 oz Weight 468 lb 4.189 oz I&O: 03/12/18 03/13/18 03/14/18 06:59 06:59 06:59 Intake Total 2570 630 900 Balance 2570 630 900 Result Diagrams: 03/12/18 04:33 03/13/18 05:41 Radiology Reviewed by me: Yes Phys Exam - Physical Examination Constitutional: NAD HEENT: PERRLA, sclera anicteric thick oral secretion Neck: no JVD, supple Respiratory: no wheezing, no rales, no rhonchi Cardiovascular: RRR, no significant murmur, no rub Gastrointestinal: soft, no distention, positive bowel sounds Musculoskeletal: no edema, pulses present Lymphatic: no nodes Deviation from normal: sleepy, weak Skin: no rash, normal turgor Dx/Plan (1) LOER (acute kidney injury) Code(s): N17.9 - ACUTE KIDNEY FAILURE, UNSPECIFIED Status: Acute Comment: improving.Cont IVF and monitor.Avoid nephrotoxins (2) Hypokalemia Code(s): E87.6 - HYPOKALEMIA Status: Acute Comment: replace and recheck.Due to GI losses (3) Nausea and vomiting Code(s): R11.2 - NAUSEA WITH VOMITING, UNSPECIFIED Status: Acute Comment: swallow eval pending. Appetite better. (4) Bladder cancer Status: Chronic Comment: Mets to Colon (5) Diarrhea Code(s): R19.7 - DIARRHEA, UNSPECIFIED Status: Chronic Qualifiers: Diarrhea type: unspecified type Qualified Code(s): R19.7 - Diarrhea, unspecified Comment: Improved (6) HTN (hypertension) Code(s): I10 - ESSENTIAL (PRIMARY) HYPERTENSION Status: Chronic Comment: controlled (7) History of pulmonary embolus (PE) Code(s): Z86.711 - PERSONAL HISTORY OF PULMONARY EMBOLISM Status: Chronic Comment: continue eliquis (8) Severe protein-calorie malnutrition Code(s): E43 - UNSPECIFIED SEVERE PROTEIN-CALORIE MALNUTRITION Status: Chronic Comment: Increase marinol dose to 5 mg BID (9) Arrhythmia Code(s): I49.9 - CARDIAC ARRHYTHMIA, UNSPECIFIED Status: Resolved Qualifiers: Arrhythmia type: supraventricular tachycardia Qualified Code(s): I47.1 - Supraventricular tachycardia (10) Dehydration Code(s): E86.0 - DEHYDRATION Status: Resolved (11) Hypomagnesemia Code(s): E83.42 - HYPOMAGNESEMIA Status: Acute - Plan cont current plan of care, plan discussed w/ family * replace potassium citrate * replace magnesium sulfate. Review of Systems - Review of Systems Other: unable to review due to pt's current baseline cognitive deficit - Medications/Allergies Allergies/Adverse Reactions: Allergies Allergy/AdvReac Type Severity Reaction Status Date / Time No Known Allergies Allergy Verified 03/02/18 21:05 Medications: Current Medications Acetaminophen (Tylenol) 650 mg PO Q4H PRN PRN Reason: Headache/Fever/Mild Pain (1-3) Apixaban (Eliquis) 2.5 mg PO BID [facility] Last Admin: 03/13/18 10:01 Dose: Not Given Benzonatate (Tessalon) 100 mg PO Q4H PRN PRN Reason: Cough Bisacodyl (Dulcolax) 10 mg PO DAILYPRN PRN PRN Reason: Constipation Ciprofloxacin (Ciprofloxacin Hcl) 1 drop EA EYE [id number] [facility] Last Admin: 03/13/18 09:33 Dose: 1 drop Clonidine (Catapres) 0.1 mg PO Q4H PRN PRN Reason: Systolic BP > 160 Diphenoxylate HCl/Atropine (Lomotil) 1 tab PO Q6H PRN PRN Reason: Diarrhea/Loose Stools Last Admin: 03/12/18 10:30 Dose: 1 tab Dronabinol (Marinol) 5 mg PO BID-[facility] Last Admin: 03/13/18 10:01 Dose: Not Given Famotidine (Pepcid) 20 mg PO DAILY [facility] Last Admin: 03/13/18 10:03 Dose: Not Given Guaifenesin (Robitussin Sf) 200 mg PO Q4H PRN PRN Reason: Cough Hydralazine HCl (Apresoline) 10 mg SLOW IVP Q4H PRN PRN Reason: Systolic BP > 170 Dextrose/Water (D5w) 1,000 mls @ 75 mls/hr IV .[id number] [facility] Last Admin: 03/13/18 09:56 Dose: 1,000 mls Magnesium Sulfate 4 gm/ Sodium (Chloride) 258 mls @ 86 mls/hr IVPB ONE [facility] Stop: 03/13/18 14:00 Loratadine (Claritin) 10 mg PO DAILYPRN PRN PRN Reason: Sinus Symptoms Methylcellulose (Citrucel) 500 mg PO DAILY [facility] Last Admin: 03/13/18 10:03 Dose: Not Given Metoprolol Tartrate (Lopressor) 25 mg PO TID [facility] Last Admin: 03/13/18 10:00 Dose: Not Given Nitroglycerin (Nitrostat) 0.4 mg SL Q5MIN PRN PRN Reason: Chest Pain Ondansetron HCl (Zofran) 4 mg IVP BID [facility] Last Admin: 03/13/18 09:40 Dose: 4 mg Polyvinyl Alcohol/Povidone (Refresh Classic Eye Drops) 1 each L EYE Q8H [facility] Last Admin: 03/13/18 03:15 Dose: 1 each Potassium Citrate (Urocit K) 10 meq PO TID-[facility] Last Admin: 03/13/18 09:35 Dose: 10 meq Promethazine HCl (Phenergan) 12.5 mg IM/IV Q6H PRN PRN Reason: Nausea/Vomiting Last Admin: 03/06/18 10:41 Dose: 12.5 mg Senna/Docusate Sodium (Senokot S) 2 tab PO BID PRN PRN Reason: Constipation Sodium Chloride (Flush - Normal Saline) 10 ml IVF Q12HR [facility] Last Admin: 03/13/18 09:34 Dose: 10 ml Sodium Chloride (Flush - Normal Saline) 10 ml IVF PRN PRN PRN Reason: Saline Flush Last Admin: 03/04/18 09:43 Dose: 10 ml
[2018-03-13] MEDS ORDERED: Potassium Phosphate 15 MMOL in Sodium Chloride 0.9% 250 ML 250 ML IVPB SCH (11:30)
[2018-03-14] MEDS: Ondansetron PF 4 MG/2 ML Vial IVP SCH ×3 (06:39→22:25)
[2018-03-14] MEDS: Polyvinyl Alcohol 1.4%/Povidone 0.6% Opth Drops L EYE SCH ×3 (06:40→21:36)
[2018-03-14] MEDS: Dextrose 5% in Water 1,000 ML IV SCH ×2 (06:49→22:23)
[2018-03-14 07:12] LABS: Hemoglobin 8.6 g/dL (14.0-18.0); Platelet Count 255 thou/uL (130-400)
[2018-03-14 07:32] LABS: Anion Gap 11 mmol/L (10-20); BUN (Urea Nitrogen) 66 mg/dL (8.4-25.7); Calc. Creatinine Clearance 40 mL/min (70-130); Carbon Dioxide 12 mmol/L (23-31); Chloride 121 mmol/L (98-107); Estimated GFR-MDRD 13; Glucose 121 mg/dL (83-110); Potassium 3.2 mmol/L (3.5-5.1); Sodium 141 mmol/L (136-145)
[2018-03-14] MEDS: Dronabinol 2.5 MG CAP PO SCH ×2 (08:52→17:40)
[2018-03-14] MEDS: Potassium Citrate 10 MEQ TAB PO SCH ×3 (08:54→18:21)
[2018-03-14] MEDS: Citrucel 500 MG TAB PO SCH (08:55)
[2018-03-14] MEDS: Apixaban 2.5 MG TAB PO SCH ×2 (08:55→21:36)
[2018-03-14] MEDS: Sodium Bicarbonate Tab 325 MG TAB PO SCH ×2 (08:56→21:37)
[2018-03-14] MEDS: Metoprolol Tartrate 25 MG TAB PO SCH ×3 (08:56→21:36)
[2018-03-14] MEDS: Famotidine 20 MG TAB PO SCH (08:56)
--- NOTE | 2018-03-14 11:08 | PDOC.PN ---
- Subjective Encounter Start Date: 03/14/18 Encounter Start Time: 07:10 pt is very weak, has very poor apatite, he still has diarrhoea, he is not making any good progress,, decided to make him comfortable, - Objective Resuscitation Status: Resuscitation Status DNR:Do Not Resuscitate MAR Reviewed: Yes Vital Signs & Weight: Vital Signs (12 hours) Temp Pulse Resp BP Pulse Ox 03/14/18 08:00 97.6 F 80 16 116/62 96 Weight Admit Weight 186 lb 14.4 oz Weight 468 lb 4.189 oz I&O: 03/13/18 03/14/18 03/15/18 06:59 06:59 06:59 Intake Total 630 2575 Balance 630 2575 Result Diagrams: 03/14/18 06:50 03/14/18 06:50 Phys Exam - Physical Examination Constitutional: NAD HEENT: PERRLA, sclera anicteric Neck: no JVD, supple Respiratory: no wheezing, no rales, no rhonchi Cardiovascular: RRR, no significant murmur, no rub Gastrointestinal: soft, no distention, positive bowel sounds Musculoskeletal: no edema, pulses present unable to assess Deviation from normal: unable to assess Skin: no rash, normal turgor Dx/Plan (1) LORE (acute kidney injury) Code(s): N17.9 - ACUTE KIDNEY FAILURE, UNSPECIFIED Status: Acute Comment: improving.Cont IVF and monitor.Avoid nephrotoxins (2) Hypokalemia Code(s): E87.6 - HYPOKALEMIA Status: Acute Comment: replace and recheck.Due to GI losses (3) Nausea and vomiting Code(s): R11.2 - NAUSEA WITH VOMITING, UNSPECIFIED Status: Acute Comment: swallow eval pending. Appetite better. (4) Bladder cancer Status: Chronic Comment: Mets to Colon (5) Diarrhea Code(s): R19.7 - DIARRHEA, UNSPECIFIED Status: Chronic Qualifiers: Diarrhea type: unspecified type Qualified Code(s): R19.7 - Diarrhea, unspecified Comment: Improved (6) HTN (hypertension) Code(s): I10 - ESSENTIAL (PRIMARY) HYPERTENSION Status: Chronic Comment: controlled (7) History of pulmonary embolus (PE) Code(s): Z86.711 - PERSONAL HISTORY OF PULMONARY EMBOLISM Status: Chronic Comment: continue eliquis (8) Severe protein-calorie malnutrition Code(s): E43 - UNSPECIFIED SEVERE PROTEIN-CALORIE MALNUTRITION Status: Chronic Comment: Increase marinol dose to 5 mg BID (9) Arrhythmia Code(s): I49.9 - CARDIAC ARRHYTHMIA, UNSPECIFIED Status: Resolved Qualifiers: Arrhythmia type: supraventricular tachycardia Qualified Code(s): I47.1 - Supraventricular tachycardia (10) Dehydration Code(s): E86.0 - DEHYDRATION Status: Resolved (11) Hypomagnesemia Code(s): E83.42 - HYPOMAGNESEMIA Status: Acute - Plan cont current plan of care, plan discussed w/ family * myself and his had long discussion this morning regarding goal of care, she expressed understanding that he is not improving and she wanted to continue DNR status as well she agreed with hospice evaluation and she also expressed understanding to stop any measures that prolong his bad quality of life * will consult hospice for evaluation * medication reviewed as below * symptomatic treatment. Review of Systems - Review of Systems Other: unable to review due to AMS - Medications/Allergies Allergies/Adverse Reactions: Allergies Allergy/AdvReac Type Severity Reaction Status Date / Time No Known Allergies Allergy Verified 03/02/18 21:05 Medications: Current Medications Acetaminophen (Tylenol) 650 mg PO Q4H PRN PRN Reason: Headache/Fever/Mild Pain (1-3) Apixaban (Eliquis) 2.5 mg PO BID [facility] Last Admin: 03/13/18 21:24 Dose: Not Given Benzonatate (Tessalon) 100 mg PO Q4H PRN PRN Reason: Cough Bisacodyl (Dulcolax) 10 mg PO DAILYPRN PRN PRN Reason: Constipation Ciprofloxacin (Ciprofloxacin Hcl) 1 drop EA EYE [id number] Last Admin: 03/14/18 06:40 Dose: Not Given Clonidine (Catapres) 0.1 mg PO Q4H PRN PRN Reason: Systolic BP > 160 Diphenoxylate HCl/Atropine (Lomotil) 1 tab PO Q6H PRN PRN Reason: Diarrhea/Loose Stools Last Admin: 03/12/18 10:30 Dose: 1 tab Dronabinol (Marinol) 5 mg PO BID[facility] Last Admin: 03/13/18 18:21 Dose: Not Given Famotidine (Pepcid) 20 mg PO DAILY [facility] Last Admin: 03/13/18 10:03 Dose: Not Given Guaifenesin (Robitussin Sf) 200 mg PO Q4H PRN PRN Reason: Cough Hydralazine HCl (Apresoline) 10 mg SLOW IVP Q4H PRN PRN Reason: Systolic BP > 170 Dextrose/Water (D5w) 1,000 mls @ 75 mls/hr IV .[id number] [facility] Last Admin: 03/14/18 06:49 Dose: 1,000 mls Loratadine (Claritin) 10 mg PO DAILYPRN PRN PRN Reason: Sinus Symptoms Methylcellulose (Citrucel) 500 mg PO DAILY [facility] Last Admin: 03/13/18 10:03 Dose: Not Given Metoprolol Tartrate (Lopressor) 25 mg PO TID [facility] Last Admin: 03/13/18 21:25 Dose: Not Given Nitroglycerin (Nitrostat) 0.4 mg SL Q5MIN PRN PRN Reason: Chest Pain Ondansetron HCl (Zofran) 4 mg IVP BID [facility] Last Admin: 03/14/18 09:20 Dose: 4 mg Polyvinyl Alcohol/Povidone (Refresh Classic Eye Drops) 1 each L EYE Q8H [facility] Last Admin: 03/14/18 06:40 Dose: Not Given Potassium Citrate (Urocit K) 10 meq PO TID-WM [facility] Last Admin: 03/13/18 20:37 Dose: Not Given Promethazine HCl (Phenergan) 12.5 mg IM/IV Q6H PRN PRN Reason: Nausea/Vomiting Last Admin: 03/06/18 10:41 Dose: 12.5 mg Senna/Docusate Sodium (Senokot S) 2 tab PO BID PRN PRN Reason: Constipation Sodium Bicarbonate (Bicarbonate, Sodium) 650 mg PO BID [facility] Sodium Chloride (Flush - Normal Saline) 10 ml IVF Q12HR [facility] Last Admin: 03/13/18 21:28 Dose: Not Given Sodium Chloride (Flush - Normal Saline) 10 ml IVF PRN PRN PRN Reason: Saline Flush Last Admin: 03/04/18 09:43 Dose: 10 ml
--- NOTE | 2018-03-14 11:20 | PDOC.EVN ---
Event Note - Event Note Event Note: advance care planning progress note I met with and discussed with her about several things as below. Pt is lethargic and he can not make any decision for him, so next of kin his present bedside. 1- IVF: currently pt is getting hydration, his po intake is very limited, this IVF is not nutrition, and discussed about goal of care, she decided to stop IVF on discharge as that is not going to change outcome for snf. 2. Code status: Addressed and explained about meaning, she expressed understanding and decided to make him DNR/DNI, out of hospital DNR paper work done 3. Hospice: Pt has metastatic cancer, he has very poor performance status to get any therapy, now he is not a candidate for any palliative therapy as well, he is declining rapidly, he will need comfort care, so she agreed with hospice evaluation and she prefers inpt hospice as she would have challenges to take care of him at home even with home hospice 4. Nutrition: pt is lethargic, not eating, mostly sleeps, she agreed not to have any feeding tube at this point. Once hospice evaluate, then will consider discharge planning. Total time bedside 20 minutes
[2018-03-15] MEDS: Polyvinyl Alcohol 1.4%/Povidone 0.6% Opth Drops L EYE SCH ×2 (04:06→11:22)
[2018-03-15 07:14] VITALS: BP 119/56; TEMP 97.4
[2018-03-15] MEDS: Potassium Citrate 10 MEQ TAB PO SCH ×2 (08:46→13:29)
[2018-03-15] MEDS: Dronabinol 2.5 MG CAP PO SCH (08:46)
--- NOTE | 2018-03-15 10:43 | DIS ---
DATE OF ADMISSION: 03/02/2018 DATE OF DISCHARGE: 03/15/2018 PRIMARY CARE PHYSICIAN: José Miguel Bishop M.D. DISCHARGE DISPOSITION: Home with home hospice. PRIMARY DISCHARGE DIAGNOSES: 1. Acute kidney failure. 2. Hyperchloremic metabolic acidosis. 3. Hypokalemia. 4. Hypomagnesemia. 5. Nausea and vomiting. 6. Diarrhea. 7. Dehydration. 8. Supraventricular tachycardia. SECONDARY DISCHARGE DIAGNOSES: Metastatic bladder cancer, protein calorie malnutrition severe, histo ry of pulmonary embolism, hypertension, history of bladder cancer with metastasis. PRIMARY PROCEDURE/OPERATION: None. RADIOLOGICAL INVESTIGATION: Chest x-ray on admission showed no focal consolidation. CT abdomen and pelvis on admission showed abdominal ascites, moderate distention of gallbladder, pulmonary parenchym al nodularity. Abdominal ultrasound showed distended gallbladder with gallbladder wall thickening. Echocardiography showed EF 50%-55% aortic stenosis. CT brain negative for any acute intracranial pro cess. SIGNIFICANT LABORATORY DATA: WBC 6.0, hemoglobin 8.6, platelet 255. Sodium 141, potassium 3.2, BUN 66, creatinine 4.25, calcium 8.0, magnesium 2.0. Stool for infection workup came back negative. Blo od culture and urine culture negative. DISCHARGE MEDICATIONS: The patient is discharged home with home hospice. The patient needs comfort care medicine. Before admission, patient was on following medications, prochlorperazine 10 mg p.o. q .4 hourly p.r.n., Norvasc 5 mg daily, Eliquis 2.5 mg p.o. b.i.d., Zofran 8 mg sublingual p.r.n., Cipr o ophthalmic drops daily, Citrucel 500 mg daily, Pepcid 20 mg daily, metoprolol 25 mg t.i.d., Urocit- K 10 mg t.i.d., sodium bicarbonate 325 mg p.o. t.i.d. CONTRAINDICATIONS: None. CODE STATUS: DNR. INPATIENT CONSULTANTS: Pattern Ruler team was following for diarrhea. Cardiology was consulted for atrial arrhythmia. Oncology Group was following for metastatic bladder cancer. TEST RESULTS PENDING ON DISCHARGE: None. ALLERGIES: No known drug allergy. DISCHARGE PLAN: Post hospital, patient is discharged to home with home hospice. Subsequently, dorene ibarra will follow with primary care physician. HOSPITAL COURSE: An 82-year-old male who was admitted in our hospital on 03/02/2018. Please see Dr. Jeremy Johnson&P for further details. This patient has physical reconditioning and he has metastatic opal dder cancer and he is receiving palliative chemotherapy since then he is going downhill. He was admi tted for generalized weakness and ongoing diarrhea. On admission, stool for infection workup was neg ative. Abdomen and pelvis CT scan showed ascites without any new finding. Abdominal ultrasound also showed gallbladder distended. Gastroenterology team was consulted and they recommended symptomatic treatment. This patient was not a candidate for any PEG tube placement because of ascites and w as not interested in going for any NG tube feeding while in hospital. His diarrhea was symptomatical ly treated with antidiarrheal medication. He was super dehydrated and required IV fluid for hydration. He had abnormal electrolytes, which req uired correction and because of diarrhea, he had hyperchloremic acidosis and that is why we started o n sodium bicarbonate. This patient day by day getting worse and worse and his performance status is getting worse. He is no longer a candidate for any chemotherapy or further treatment. Oncology grou p saw this patient as well. His renal function is also not improving. Even after 10 days of hospitalization and despite aggressive treatment for diarrhea, he did not impro ve and his condition deteriorated. At that point, we discussed with the family about goal of care an d they decided to change his code status to DNR and they agreed with hospice. At this point, the sheryl mustafa's agreed not to continue IV fluid and not to do any tube feeding and only she is interested in comfort care. With help of case making machine operator, hospice has arranged all necessary equipments at home. Medication for comfort care will be decided by hospice team. This patient's prognosis is extremely poor. We are not expecting any recovery. The patient is seen and examined at bedside today. REVIEW OF SYSTEMS: Not possible with the patient. Plan of care discussed with the . PHYSICAL EXAMINATION: VITAL SIGNS: Currently, temperature 97.4, pulse 74, respiratory rate 16, saturation 94%, blood press ure 119/56. GENERAL: The patient is sleepy and lethargic, not following any commands. HEAD: Normocephalic, atraumatic. LUNGS: Clear to auscultation without any rhonchi or rales. CARDIAC: S1, S2 appears regular without any significant murmur, though systolic murmur noted in righ t second intercostal space. ABDOMEN: Soft and benign. EXTREMITIES: No edema. NEUROLOGIC: Examination not possible because of lethargy. Paperwork for discharge done. Total time spent on discharge day 35 minutes.
[2018-03-15] MEDS: Citrucel 500 MG TAB PO SCH (11:21)
[2018-03-15] MEDS: Metoprolol Tartrate 25 MG TAB PO SCH (11:21)
[2018-03-15] MEDS: Famotidine 20 MG TAB PO SCH (11:21)
[2018-03-15] MEDS: Apixaban 2.5 MG TAB PO SCH (11:21)
[2018-03-15] MEDS: Ondansetron PF 4 MG/2 ML Vial IVP SCH (11:22)
[2018-03-15] MEDS: Sodium Bicarbonate Tab 325 MG TAB PO SCH (11:23)
== END 2018-03-15 13:32 | disposition hospice, home (50) | DRG 682 ==
LOC: ERS 13:25 → 2NO 18:11 → ONC 03-12 11:47
PROVIDERS: ADMIT Internal Medicine; ATTEND Internal Medicine
DX: N17.9 Acute kidney failure, unspecified (principal); E43 Unspecified severe protein-calorie malnutrition; C78.5 Secondary malignant neoplasm of large intestine and rectum; R18.8 Other ascites; E87.2 Acidosis; I47.1 Supraventricular tachycardia; C67.9 Malignant neoplasm of bladder, unspecified; Z51.5 Encounter for palliative care; E86.0 Dehydration; E87.6 Hypokalemia; R19.7 Diarrhea, unspecified; I10 Essential (primary) hypertension; I25.10 Atherosclerotic heart disease of native coronary artery without angina pectoris; E83.42 Hypomagnesemia; Z68.29 Body mass index [BMI] 29.0-29.9, adult; Z66 Do not resuscitate; R11.2 Nausea with vomiting, unspecified; H10.9 Unspecified conjunctivitis; Z79.01 Long term (current) use of anticoagulants; Z86.711 Personal history of pulmonary embolism; Z87.891 Personal history of nicotine dependence; Z95.5 Presence of coronary angioplasty implant and graft
CPT/HCPCS: 36415; 70450; 71045; 74176; 76705; 80048; 80053; 81003; 81015; 83605; 83630; 83690; 83735; 84100; 84484; 85014; 85018; 85025; 85049; 87040; 87045; 87046; 87081; 87086; 87324; 87449; 87899; 90471; 90662; 90670; 93005; 93010; 93306; 96365; 96366; G0008; G0009; G8978-GP-CL; G8979-GP-CJ; G8987-GO-CK; G8988-GO-CI; G8996-GN-CK; G8997-GN-CI; J2405; J2550; J3475; J3480; J7050; Q0167; S0179

== ENCOUNTER 2018-03-23 13:12 | Inpatient (IN) | payer MEDICARE ==
[2018-03-23 14:19] LABS: Hemoglobin 8.1 g/dL (14.0-18.0); Mean Corpuscular Hemoglobin 28.9 pg (27.0-31.0); Mean Corpuscular Volume 90.2 fL (78.0-98.0); Mean Platelet Volume 8.5 fL (7.4-10.4); Platelet Count 171 thou/uL (130-400); RBC Distribution Width 19.2 % (11.5-14.5); Red Blood Cell (RBC) Count 2.79 mill/uL (4.70-6.10); White Blood Cell (WBC) Count 35.8 thou/uL (4.8-10.8)
[2018-03-23 14:20] LABS: Bilirubin Small (Negative); Blood, Urine Small (Negative); Clarity TURBID (Clear); Glucose, Urine (Dipstick) Negative (Negative); Leukocyte Large (Negative); Nitrite Negative (Negative); Protein, Urine (Dipstick) 100 mg/dL (Neg-Trace); Specific Gravity, Urine 1.015 (1.002-1.036); Urobilinogen 0.2 mg/dL (0.2-1.0); pH, Urine 5.5 (5.0-9.0)
[2018-03-23 14:22] LABS: Bacteria/HPF None Seen HPF (None Seen)
[2018-03-23 14:25] LABS: Yeast-AUWi Flag 624.5 (0-25.0)
[2018-03-23 14:26] LABS: Pathc Cast-AUWi Flag 24.56 (0-2.49)
[2018-03-23 14:35] LABS: Anisocytosis SLIGHT = 6-15 cells (100X) (0-5/hpf); Band 5 % (5-11); Burr Cells SLIGHT = 2-5 cells (100X) (0-1/hpf); Elliptocytes SLIGHT = 2-5 cells (100X) (0-1/hpf); Lymphocytes 2 % (21-51); MDiff Complete? YES; Monocytes 3 % (0-10); Neutrophil 90 % (42-75); Ovalocytes SLIGHT = 2-5 cells (100X) (0-1/hpf); PLT Morphology Comment Appears Adequate; Poikilocytosis SLIGHT = 6-15 cells (100X) (0-5/hpf); Polychromasia SLIGHT = 2-3 cells (100X) (0-2/hpf); Schistocytes SLIGHT = 2-5 cells (100X) (0-1/hpf)
[2018-03-23 14:36] LABS: Crystals/HPF 2+ AMORPH URATES HPF (Negative)
[2018-03-23 14:37] LABS: Hyaline Casts/LPF 4-6 HYALINE CAST LPF (0-3 Hyaline); Yeast-All Forms None Seen HPF (None Seen)
[2018-03-23 15:22] LABS: Albumin 2.4 g/dL (3.4-4.8)
[2018-03-23 15:23] LABS: Potassium 3.2 mmol/L (3.5-5.1)
[2018-03-23 15:24] LABS: Calcium 8.8 mg/dL (7.8-10.44)
[2018-03-23 15:25] LABS: Globulin 2.8 g/dL (2.4-3.5); Glucose 95 mg/dL (83-110); Protein, Total 5.2 g/dL (5.8-8.1)
[2018-03-23 15:26] LABS: Anion Gap 19 mmol/L (10-20); Carbon Dioxide 12 mmol/L (23-31)
[2018-03-23 15:27] LABS: Bilirubin, Total 0.4 mg/dL (0.2-1.2)
[2018-03-23 15:28] LABS: Alkaline Phosphatase 99 U/L (40-150); Calc. Creatinine Clearance 0 mL/min (70-130); Estimated GFR-MDRD 10
[2018-03-23 15:29] LABS: BUN (Urea Nitrogen) 81 mg/dL (8.4-25.7); Chloride 134 mmol/L (98-107); Sodium 162 mmol/L (136-145)
[2018-03-23 15:30] LABS: AST (SGOT) 9 U/L (5-34)
[2018-03-23 15:31] LABS: ALT (SGPT) 8 U/L (8-55); CK (CPK) 28 U/L (30-200); Lipase 9 U/L (8-78)
--- NOTE | 2018-03-23 15:43 | RAD ---
PORTABLE CHEST: HISTORY: Hypotension. Altered mental status. FINDINGS: Heart size is within normal limits. There are atherosclerotic changes of the aorta. The lungs show some linear change in the bases, suggesting some subsegmental atelectasis. A right-sided Mediport ca theter is present. The bones are demineralized. IMPRESSION: Minimal subsegmental atelectasis in the lung bases. POS: [facility]
[2018-03-23] MEDS ORDERED: cefTRIAXone\\ROCEPHIN 2 GM VIAL ONE (15:44)
[2018-03-23 18:00] VITALS: BP 107/62; TEMP 97.8
[2018-03-23] MEDS ORDERED: Sodium Chloride 0.9% 1,000 ML IV SCH (18:20)
[2018-03-23] MEDS ORDERED: Ondansetron ODT 4 MG TAB SL PRN (18:20)
[2018-03-23] MEDS ORDERED: Ondansetron PF 4 MG/2 ML Vial IVP PRN (18:20)
[2018-03-23] MEDS ORDERED: Vancomycin HCl 1 GM in Premix Bag 1 BAG IVPB SCH (20:00)
--- NOTE | 2018-03-24 07:21 | HP ---
DATE OF ADMISSION: 03/23/2018 HISTORY OF PRESENT ILLNESS: Mr. Das is a very pleasant 82-year-old male on 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 The patient has been staying at home and actually doing very well until most recently when he develop ed some nausea and vomiting. Today, his vomiting has become intractable and not responsive to Phener juan jose and/or Zofran. Then, he started having significant diarrhea. It became intractable and therefor e, the patient was brought to the emergency room where he was seen and IV was started and the patient was given some IV Zofran along with bolus infusions of normal saline. The patient was noted to have significant hypernatremia with a sodium of 162. Potassium is 3.2, chloride 134. His creatinine was in renal insufficiency with 5.4. His BUN was 81. Patient's WBC was 35,800 with hemoglobin 8.1, hematocrit 25.2. The patient is most likely septic fro m urosepsis with wbc's greater than 50, too numerous to count. For the patient's intractable nausea and vomiting, it was elected to admit the patient for continued hospice care as GIP. He has been transferred to Oncology, room #135. PAST MEDICAL HISTORY: Significant for, 1. 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 2. History of hypertension. 3. History of pulmonary embolism. PAST SURGICAL HISTORY: 1. The patient has cardiac stents x1 and a bowel perforation repair. 2. Left cataract surgery. 3. Hernia repair. SOCIAL HISTORY: Reveals patient is , lives with his in [place], [place]. He quit smoking years ago. He has no alcohol use. FAMILY HISTORY: Positive for breast cancer in his sister. ALLERGIES: The patient has no known drug allergies. At this time, the patient has been off most medications except for his Zofran and Phenergan. REVIEW OF SYSTEMS: Unremarkable. The patient is unresponsive, so is not able to give any history. The patient's daughter and states he has been doing well except for his nausea and vomiting, akhil t has been intractable along with diarrhea that started today. PHYSICAL EXAMINATION: GENERAL: This is very pale-looking, nonresponsive white male who presently is very calm and seems co mfortable. HEENT: Reveals normocephalic, nontraumatic cranium. The pupils are equally round. Nose and throat are very dry. NECK: Supple, without mass, nodes or bruits. No jugular venous distention is noted. LUNGS: The chest is dry with shallow breath sounds. No rales, no rhonchi, no wheezes are heard. No cough is noted. HEART: Reveals a regular rate and rhythm with pulse in the 80s-90s. ABDOMEN: Soft, nontender, without organomegaly. Normal bowel sounds are noted at this time. A Medi Port is noted in the right upper chest wall. : Exam reveals Montoya catheter in place. EXTREMITIES: Reveal no clubbing, cyanosis, or edema. IMPRESSION: 1. Metastatic adenocarcinoma of the colon with metastasis to the omentum and the bladder. 2. Hypernatremic dehydration. 3. Leukocytosis. 4. Acute on chronic renal insufficiency. 5. Most likely urosepsis. 6. Severe dehydration. 7. Admission for GIP for continued hospice care. PLAN: 1. The patient is admitted to room 135 in Oncology for GIP care. 2. We will make sure that the patient is comfortable. 3. Make sure the patient will receive IV medications for his nausea and vomiting. 4. We discussed the case with the patient's family and they agree to keeping him here overnight.
--- NOTE | 2018-03-24 11:55 | PRG ---
DATE OF SERVICE: 03/24/2018. SUBJECTIVE: Mr. Das is an 82-year-old white male with adenocarcinoma with a GI origin. He has me tastasis to the bladder and the omentum. He was on hospice at home and developed intractable nausea, vomiting, and diarrhea. He was brought to the emergency room and found to be uroseptic and was give n IV fluids along with IV Zofran. His nausea and vomiting stopped. His diarrhea has decreased. He was admitted to [facility] service with a primary hospice diagnosis of colon cancer with metastasis to the b ladder and omentum. The patient actually had a very quiet night with only some dry heaves. He has not required very much medicine over the evening at all. His and his daughter have spent the night in his room since he was eminent. OBJECTIVE: VITAL SIGNS: Reveal last blood pressure 107/62, pulse 82, respirations 18, O2 sat 92% on room air, T -max 97.8. GENERAL: This is a well-developed, well-nourished, very pleasant obtunded white male in no apparent distress. HEENT: Reveals normocephalic, nontraumatic cranium. Pupils are equally round. Extraocular movement s intact. Nose and throat are dry. NECK: Supple, without mass, nodes or bruits. LUNGS: Chest is clear to auscultation. No cough is noted. No rales, no rhonchi, no wheezes are not ed. Breath sounds are a little coarse today. CARDIOVASCULAR: Heart reveals a regular rate and rhythm without murmurs, gallops or rubs. ABDOMEN: Soft, slightly obese, nontender, without organomegaly. Normal bowel sounds are noted. GENITOURINARY: Deferred. Montoya catheter is in place. Urine is clear and yellow. EXTREMITIES: Reveal no clubbing, cyanosis or edema. IMPRESSION: 1. Colon cancer with metastasis to the bladder and omentum. 2. Intractable vomiting, much improved. 3. Dehydration. 4. Hypernatremia. 5. Acute renal insufficiency with a creatinine last checked 5.2. 6. Leukocytosis with a white count of 35,000. PLAN: The patient is admitted to [facility] and is going to be treated conservatively. The family includin g the and daughter are here. He is a DNR. We will continue to manage him conservatively and ke ep him as pain free as possible.
--- NOTE | 2018-03-25 07:19 | PRG ---
DATE OF SERVICE: 03/25/2018 HISTORY OF PRESENT ILLNESS: Mr. Das is a very pleasant 82-year-old white male with adenocarcinoma of the GI tract with metastasis to his bladder and omentum. He has been placed on hospice care and unfortunately developed intractable nausea, vomiting and diarrhea. He was brought to the emergency r oom, evaluated and found to be hyponatremic and renal failure, and intractable vomiting. IV was star liseth. He was given some IV Zofran and some IV fluids. He has improved significantly, has not had any significant nausea or vomiting today. He did holler out once last night and get some medicine to ca lm him down. His spent the night with him again and she is very pleased with his care so far. VITAL SIGNS: Today reveal blood pressure 100/60, pulse 72-80, respirations 16-20, O2 sat 94% on room air, T-max 97.4. PHYSICAL EXAMINATION: GENERAL: This is a well-developed, well-nourished, very pleasant, sleepy and somewhat lethargic whit e male in no apparent distress at this time. HEENT: Reveals normocephalic, nontraumatic cranium. Pupils are equally round and reactive. Extraoc ular movements intact. Nose and throat are very dry. NECK: Supple, without mass, nodes or bruits. LUNGS: Chest is clear to auscultation. No cough is noted. No rales, rhonchi or wheezes are noted. Breath sounds are again a little coarse today. CARDIOVASCULAR: Reveals a regular rate and rhythm without murmurs, gallops or rubs. ABDOMEN: Soft, nontender, without organomegaly, normal bowel sounds are noted. No rebound or guardi ng is noted. : Within normal limits. EXTREMITIES: Reveal no clubbing or cyanosis. Left upper extremity show some edema. The right is no rmal. IMPRESSION: 1. Colon cancer with metastasis to the bladder and the omentum. 2. Intractable vomiting, resolved. 3. Dehydration. 4. Hypernatremia. 5. Acute renal insufficiency with creatinine in the 5s. 6. Leukocytosis with a white count in the 35s. PLAN: 1. We are not doing serial enzymes or electrolytes or monitoring the patient's renal insufficiency s econdary to him being on hospice and a DNR. We are making the patient comfortable. 2. The patient has been admitted to [facility] and we are treating him conservatively. 3. The patient's is pleased with the care so far. 4 The patient is DNR. 5. Continue to manage him conservatively and keep him pain free as possible.
--- NOTE | 2018-03-27 08:11 | PRG ---
DATE OF SERVICE: 03/26/2018 HISTORY OF PRESENT ILLNESS: Mr. Das is a very pleasant 82-year-old white male with adenocarcinoma of the GI tract with metastasis to the bladder and the omentum. He was placed on hospice care and d eveloped intractable nausea and vomiting and diarrhea. He was brought to the emergency room, [facility] ed and found to be significantly hypernatremic with renal failure with creatinine of 5+. His IV was started. He was given some fluids and he was given some IV Zofran, which did curb his nausea and vom iting. He was placed in [facility] in the Oncology unit and has actually made very comfortable. His a nd daughter are here at this time. His vital signs began to deteriorate. OBJECTIVE: VITAL SIGNS: At this time reveal blood pressure 68/37, pulse 108, respirations 6, O2 saturation 90 o n room air. T-max 98.4. GENERAL: This is an elderly white male who is basically obtunded and unresponsive. Respirations are slow and agonal. HEENT: Reveals normocephalic, nontraumatic cranium. Pupils are round and reactive. Nose and throat are dry. NECK: Supple without mass, nodes or bruits. LUNGS: Chest is clear, but has some coarse breath sounds that is only 6 per minute. CARDIOVASCULAR: Heart reveals a regular rate and rhythm. ABDOMEN: Soft, nontender with slow bowel sounds. No rebound or guarding. GENITOURINARY: Reveals Montoya catheter in place. EXTREMITIES: Reveal no clubbing, cyanosis or edema. IV is in the left dorsalis pedis vein. IMPRESSION: 1. Colon cancer with metastasis to the bladder and omentum. 2. Intractable vomiting, resolved. 3. Dehydration. 4. Hypernatremia. 5. Acute renal insufficiency with creatinine of 5s. 6. Leukocytosis with white count of 35,000. PLAN: The patient is being made comfortable at this time. The patient is admitted to [facility] for conservative therapy. The and the daughter are here at his bedside. The patient is a DNR. Plan is to keep him as pain free as possible.
== END 2018-03-23 18:34 | disposition hospice, home (50) | DRG 872 ==
LOC: ERS 13:12 → ONC 16:16
PROVIDERS: ADMIT Family Medicine; ATTEND Family Medicine
DX: A41.9 Sepsis, unspecified organism (principal); C18.9 Malignant neoplasm of colon, unspecified; C79.11 Secondary malignant neoplasm of bladder; E87.0 Hyperosmolality and hypernatremia; N39.0 Urinary tract infection, site not specified; N17.9 Acute kidney failure, unspecified; C78.6 Secondary malignant neoplasm of retroperitoneum and peritoneum; Z66 Do not resuscitate; Z51.5 Encounter for palliative care; E86.0 Dehydration; I12.9 Hypertensive chronic kidney disease with stage 1 through stage 4 chronic kidney disease, or unspecified chronic kidney disease; N18.9 Chronic kidney disease, unspecified; Z87.891 Personal history of nicotine dependence; Z86.711 Personal history of pulmonary embolism; Z95.5 Presence of coronary angioplasty implant and graft
CPT/HCPCS: 36415; 51701; 71045; 80053; 81003; 81015; 82274; 82550; 83690; 85025; 87040; 87086; 93005; 96360; 96361; 96365; J0696; J1580; J2060; J2270; J2405; J7050

== ENCOUNTER 2018-03-23 18:34 | Inpatient (IN) | payer OTHER ==
[2018-03-23 18:54] VITALS: BMI 28.5
[2018-03-23] MEDS ORDERED: Acetaminophen 325 MG TAB PO PRN (19:17)
[2018-03-23] MEDS ORDERED: chlorproMAZINE HCl 25 MG in Sodium Chloride 0.9% 50 ML IVPB PRN (19:17)
[2018-03-23] MEDS ORDERED: Scopolamine 1.5 mg/72 hour Patch TOP PRN (19:17)
[2018-03-23] MEDS ORDERED: Promethazine HCl 25 MG/ML VIAL SLOW IVP PRN (19:22)
[2018-03-23] MEDS ORDERED: Bisacodyl 10 MG SUPP PR PRN (19:24)
[2018-03-23] MEDS: Sodium Chloride 0.9% 1,000 ML IV SCH (19:30)
--- NOTE | 2018-03-24 11:55 | PRG ---
DATE OF SERVICE: 03/24/2018. SUBJECTIVE: Mr. Das is an 82-year-old white male with adenocarcinoma with a GI origin. He has me tastasis to the bladder and the omentum. He was on hospice at home and developed intractable nausea, vomiting, and diarrhea. He was brought to the emergency room and found to be uroseptic and was give n IV fluids along with IV Zofran. His nausea and vomiting stopped. His diarrhea has decreased. He was admitted to [facility] service with a primary hospice diagnosis of colon cancer with metastasis to the b ladder and omentum. The patient actually had a very quiet night with only some dry heaves. He has not required very much medicine over the evening at all. His and his daughter have spent the night in his room since he was eminent. OBJECTIVE: VITAL SIGNS: Reveal last blood pressure 107/62, pulse 82, respirations 18, O2 sat 92% on room air, T -max 97.8. GENERAL: This is a well-developed, well-nourished, very pleasant obtunded white male in no apparent distress. HEENT: Reveals normocephalic, nontraumatic cranium. Pupils are equally round. Extraocular movement s intact. Nose and throat are dry. NECK: Supple, without mass, nodes or bruits. LUNGS: Chest is clear to auscultation. No cough is noted. No rales, no rhonchi, no wheezes are not ed. Breath sounds are a little coarse today. CARDIOVASCULAR: Heart reveals a regular rate and rhythm without murmurs, gallops or rubs. ABDOMEN: Soft, slightly obese, nontender, without organomegaly. Normal bowel sounds are noted. GENITOURINARY: Deferred. Montoya catheter is in place. Urine is clear and yellow. EXTREMITIES: Reveal no clubbing, cyanosis or edema. IMPRESSION: 1. Colon cancer with metastasis to the bladder and omentum. 2. Intractable vomiting, much improved. 3. Dehydration. 4. Hypernatremia. 5. Acute renal insufficiency with a creatinine last checked 5.2. 6. Leukocytosis with a white count of 35,000. PLAN: The patient is admitted to [facility] and is going to be treated conservatively. The family includin g the and daughter are here. He is a DNR. We will continue to manage him conservatively and ke ep him as pain free as possible.
[2018-03-24] MEDS ORDERED: Scopolamine 1.5 mg/72 hour Patch TOP SCH (17:00)
[2018-03-24] MEDS: Sodium Chloride 0.9% 1,000 ML IV SCH (17:33)
[2018-03-24] MEDS: Ondansetron PF 4 MG/2 ML Vial IVP SCH ×2 (17:34→22:27)
[2018-03-25] MEDS: Ondansetron PF 4 MG/2 ML Vial IVP SCH ×6 (01:36→21:35)
--- NOTE | 2018-03-25 07:19 | PRG ---
DATE OF SERVICE: 03/25/2018 HISTORY OF PRESENT ILLNESS: Mr. Das is a very pleasant 82-year-old white male with adenocarcinoma of the GI tract with metastasis to his bladder and omentum. He has been placed on hospice care and unfortunately developed intractable nausea, vomiting and diarrhea. He was brought to the emergency r oom, evaluated and found to be hyponatremic and renal failure, and intractable vomiting. IV was star liseth. He was given some IV Zofran and some IV fluids. He has improved significantly, has not had any significant nausea or vomiting today. He did holler out once last night and get some medicine to ca lm him down. His spent the night with him again and she is very pleased with his care so far. VITAL SIGNS: Today reveal blood pressure 100/60, pulse 72-80, respirations 16-20, O2 sat 94% on room air, T-max 97.4. PHYSICAL EXAMINATION: GENERAL: This is a well-developed, well-nourished, very pleasant, sleepy and somewhat lethargic whit e male in no apparent distress at this time. HEENT: Reveals normocephalic, nontraumatic cranium. Pupils are equally round and reactive. Extraoc ular movements intact. Nose and throat are very dry. NECK: Supple, without mass, nodes or bruits. LUNGS: Chest is clear to auscultation. No cough is noted. No rales, rhonchi or wheezes are noted. Breath sounds are again a little coarse today. CARDIOVASCULAR: Reveals a regular rate and rhythm without murmurs, gallops or rubs. ABDOMEN: Soft, nontender, without organomegaly, normal bowel sounds are noted. No rebound or guardi ng is noted. : Within normal limits. EXTREMITIES: Reveal no clubbing or cyanosis. Left upper extremity show some edema. The right is no rmal. IMPRESSION: 1. Colon cancer with metastasis to the bladder and the omentum. 2. Intractable vomiting, resolved. 3. Dehydration. 4. Hypernatremia. 5. Acute renal insufficiency with creatinine in the 5s. 6. Leukocytosis with a white count in the 35s. PLAN: 1. We are not doing serial enzymes or electrolytes or monitoring the patient's renal insufficiency s econdary to him being on hospice and a DNR. We are making the patient comfortable. 2. The patient has been admitted to [facility] and we are treating him conservatively. 3. The patient's is pleased with the care so far. 4 The patient is DNR. 5. Continue to manage him conservatively and keep him pain free as possible.
[2018-03-25] MEDS: Lorazepam 2 MG/ML VIAL SLOW IVP PRN (17:42)
[2018-03-25] MEDS ORDERED: Morphine 2 MG/ML SYRINGE SLOW IVP SCH (18:00)
[2018-03-25] MEDS: Sodium Chloride 0.9% 1,000 ML IV SCH (20:22)
[2018-03-25] MEDS: Morphine 2 MG/ML SYRINGE SLOW IVP SCH (21:35)
[2018-03-26] MEDS: Ondansetron PF 4 MG/2 ML Vial IVP SCH ×4 (01:23→14:29)
[2018-03-26] MEDS: Morphine 2 MG/ML SYRINGE SLOW IVP SCH ×4 (01:23→14:30)
[2018-03-26] MEDS: Morphine 2 MG/ML SYRINGE SLOW IVP PRN ×3 (03:00→10:08)
[2018-03-26] MEDS: Lorazepam 2 MG/ML VIAL SLOW IVP PRN (14:29)
[2018-03-26 14:50] VITALS: BP 68/37; TEMP 98.4
--- NOTE | 2018-03-27 08:11 | PRG ---
DATE OF SERVICE: 03/26/2018 HISTORY OF PRESENT ILLNESS: Mr. Das is a very pleasant 82-year-old white male with adenocarcinoma of the GI tract with metastasis to the bladder and the omentum. He was placed on hospice care and d eveloped intractable nausea and vomiting and diarrhea. He was brought to the emergency room, [facility] ed and found to be significantly hypernatremic with renal failure with creatinine of 5+. His IV was started. He was given some fluids and he was given some IV Zofran, which did curb his nausea and vom iting. He was placed in [facility] in the Oncology unit and has actually made very comfortable. His a nd daughter are here at this time. His vital signs began to deteriorate. OBJECTIVE: VITAL SIGNS: At this time reveal blood pressure 68/37, pulse 108, respirations 6, O2 saturation 90 o n room air. T-max 98.4. GENERAL: This is an elderly white male who is basically obtunded and unresponsive. Respirations are slow and agonal. HEENT: Reveals normocephalic, nontraumatic cranium. Pupils are round and reactive. Nose and throat are dry. NECK: Supple without mass, nodes or bruits. LUNGS: Chest is clear, but has some coarse breath sounds that is only 6 per minute. CARDIOVASCULAR: Heart reveals a regular rate and rhythm. ABDOMEN: Soft, nontender with slow bowel sounds. No rebound or guarding. GENITOURINARY: Reveals Montoya catheter in place. EXTREMITIES: Reveal no clubbing, cyanosis or edema. IV is in the left dorsalis pedis vein. IMPRESSION: 1. Colon cancer with metastasis to the bladder and omentum. 2. Intractable vomiting, resolved. 3. Dehydration. 4. Hypernatremia. 5. Acute renal insufficiency with creatinine of 5s. 6. Leukocytosis with white count of 35,000. PLAN: The patient is being made comfortable at this time. The patient is admitted to [facility] for conservative therapy. The and the daughter are here at his bedside. The patient is a DNR. Plan is to keep him as pain free as possible.
== END 2018-03-26 16:58 | disposition expired | DRG 641 ==
LOC: ONC 18:34
PROVIDERS: ADMIT Family Medicine; ATTEND Family Medicine
DX: E87.0 Hyperosmolality and hypernatremia (principal); C18.9 Malignant neoplasm of colon, unspecified; Z51.5 Encounter for palliative care; C78.6 Secondary malignant neoplasm of retroperitoneum and peritoneum; C79.11 Secondary malignant neoplasm of bladder; N17.9 Acute kidney failure, unspecified; E86.0 Dehydration; R11.2 Nausea with vomiting, unspecified; Z66 Do not resuscitate
CPT/HCPCS: J2060; J2270; J2405